=== PATIENT | female | born 1980 | race Asian ===

== ENCOUNTER 2018-02-23 23:39 | Inpatient (IN) | payer MEDICAID, OTHER ==
[~2018-02-23] VITALS: Ht 172.7 cm; Wt 47.8 kg
--- NOTE | 2018-02-23 23:59 | Emergency Room Report ---
History of Present Illness General Chief Complaint: Abdominal Pain Source: Patient, Friend, Significant Other Present Illness HPI This is a 37-year-old Polish speaking female presents with chief point abdominal pain. 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 Pain is epigastric and diffuse in nature. Nauseous but no vomiting. Pain is 10 out of 10. Never had this problem before. No fever chills. No diarrhea. No radiation. Allergies: Coded Allergies: No Known Allergies (Unverified , 02/23/18) Patient History Past Medical History: see triage record, old chart reviewed Past Surgical History: none Pertinent Family History: none Social History: Reports: smoking Last Menstrual Period: 02/17/18 Now: No Immunizations: other Reviewed Nursing Documentation: PMH: Agreed; PSxH: Agreed Nursing Documentation-PMH Past Medical History Deferred: Pt Cognitively Impaired Past Medical History: No Stated History Review of Systems Eye: Denies: eye pain, blurred vision ENT: Denies: ear pain, nose congestion, throat swelling Respiratory: Denies: cough, shortness of breath Cardiovascular: Denies: chest pain, palpitations Gastrointestinal: Reports: abdominal pain; Denies: diarrhea, nausea, vomiting Musculoskeletal: Denies: back pain, joint pain Skin: Denies: rash Neurological: Denies: headache, numbness Endocrine: Denies: increased thirst, increased urine Hematologic/Lymphatic: Denies: easy bruising All Other Systems: negative except mentioned in HPI Physical Exam Vital Signs Date Time Temp Pulse Resp B/P (MAP) Pulse Ox O2 Delivery O2 Flow Rate FiO2 02/23/18 23:36 97.8 90 20 110/70 98 Room Air 97.9 vitals normal Sp02 EP Interpretation: reviewed, normal General Appearance: well appearing, alert, thin Head: normocephalic, atraumatic Eyes: bilateral eye PERRL, bilateral eye EOMI ENT: hearing grossly normal, normal pharynx Neck: full range of motion, supple, no meningismus Respiratory: chest non-tender, lungs clear, normal breath sounds Cardiovascular #1: regular rate, rhythm, no murmur Gastrointestinal: no mass, no organomegaly, no bruit, non-distended, tenderness - diffuse, decreased bowel sounds Musculoskeletal: back normal, gait/station normal, normal range of motion, other - Patient is diffuse scarring and ulceration on her forearms from skin picking. Neurologic: alert, oriented x3 Psychiatric: mood/affect normal Skin: warm/dry Procedures Critical Care Time Critical Care Time Critical care is mandated in this patient who presented with acute abdomen from perforation. Patient require my urgent intervention to attenuate the risks of metabolic collapse which may lead to cardiovascular collapse and . Critical care time is 35 minutes excluding any reportable procedure. Critical care time included evaluation, multiple reevaluation, looking at old charts, interpreting laboratory and diagnostic data, discussing case with patient and family and consultants, and charting. Medical Decision Making Diagnostic Impression: Primary Impression: Peritonitis (acute) generalized Additional Impressions: Cholecystitis, acute Amphetamine abuse ER Course Patient presents with acute abdomen. She does have free air. Is concerning for perforation. Most likely duodenal/gastric ulcer. She also has free fluid in the pelvis. Negative . Could also be concerning for ovarian cyst rupture. Antibiotics and IV fluid given. I discussed the case with Dr. Bond, surgeon assistant director of plant operations, who will see pt. I also contacted Dr. Nieto for admission. Lab Results Impression labs unremarkable CT/MRI/US Diagnostic Results CT/MRI/US Diagnostic Results : Imaging Test Ordered: CT abdomen and pelvis Impression Read by radiologist. Multiple area of free air mostly right upper quadrant. Gallbladder wall thickening with pericholecystic fluid. Fluid in pelvis. Last Vital Signs Date Time Temp Pulse Resp B/P (MAP) Pulse Ox O2 Delivery O2 Flow Rate FiO2 02/23/18 23:36 97.8 90 20 110/70 98 Room Air 97.9 Status: improved Disposition: ADMITTED INPATIENT Condition: Serious Ulices Jraa MD Feb 23, 2018 23:59
[2018-02-24] VITALS (14 sets, daily range): BP systolic 111–146; BP diastolic 53–93
[2018-02-24] MEDS ORDERED: Morphine Sulfate 4mg/ml Inj (IV USE ONLY) IVP ONE ×3 (00:30→02:15)
[2018-02-24 00:45] LABS: APPEARANCE,URINE CLEAR; BILIRUBIN, URINE NEGATIVE (NEGATIVE); GLUCOSE, URINE (UA) NEGATIVE (NEGATIVE); KETONES,URINE 3+ (NEGATIVE); LEUKOCYTE ESTERASE ,URINE NEGATIVE (NEGATIVE); NITRITE,URINE NEGATIVE (NEGATIVE); PH,URINE 6 (4.5-8.0); PROTEIN,URINE 2+ (NEGATIVE); UROBILINOGEN,URINE NORMAL MG/DL (0.0-1.0)
[2018-02-24 00:46] LABS: ANION GAP 9 mmol/L (5-15); BLOOD UREA NITROGEN 15 mg/dL (7-18); CALCIUM 8.9 MG/DL (8.5-10.1); CARBON DIOXIDE 26 MMOL/L (21-32); CHLORIDE 102 MMOL/L (98-107); CREATININE 0.8 MG/DL (0.55-1.30); POTASSIUM 3.8 MMOL/L (3.5-5.1); SODIUM 137 MMOL/L (136-145)
[2018-02-24 00:51] LABS: BASOPHILS % (AUTO) 0.5 % (0.0-2.0); EOSINOPHILS % (AUTO) 1.4 % (0.0-3.0); HEMATOCRIT 29.7 % (37.0-47.0); HEMOGLOBIN 9.1 G/DL (12.0-16.0); LYMPHOCYTES % (AUTO) 15.9 % (20.0-45.0); MEAN CORPUSCULAR VOLUME 73 FL (80-99); MONOCYTES % (AUTO) 3.6 % (1.0-10.0); NEUTROPHILS % (AUTO) 78.7 % (45.0-75.0); PLATELET COUNT 472 K/UL (150-450); RED CELL DISTRIBUTION WIDTH 16.7 % (11.6-14.8); WHITE BLOOD COUNT 12.5 K/UL (4.8-10.8)
[2018-02-24 00:53] LABS: ALANINE AMINOTRANSFERASE 18 U/L (12-78); ALBUMIN 3.8 G/DL (3.4-5.0); ALBUMIN/GLOBULIN RATIO 1.2 (1.0-2.7); ALKALINE PHOSPHATASE 55 U/L (46-116); ASPARTATE AMINO TRANSFERASE 19 U/L (15-37); BILIRUBIN,TOTAL 0.4 MG/DL (0.2-1.0)
[2018-02-24 00:59] LABS: COLOR,URINE YELLOW
[2018-02-24] MEDS ORDERED: Isovue-300 100ml vial INJ PRN (01:00)
[2018-02-24] MEDS ORDERED: Piperacillin/Tazobactam 3.375 GM in NS 110 ML IVPB ONE (02:15)
--- NOTE | 2018-02-24 04:30 | Consultation ---
DATE OF CONSULTATION: 02/24/2018 PREOPERATIVE CONSULTATION REQUESTING PHYSICIAN: Emergency room physician. REASON FOR CONSULTATION: Abdominal pain. HISTORY OF PRESENT ILLNESS: This is a 37-year-old, oriental female, who presented to emergency room for abdominal pain since 9 o'clock February 23, 2018, which was about 4 or 5 hours ago. The pain apparently is located in the right upper quadrant and has been associated with nausea, but no vomiting. She claims that she has a history of abdominal pain for which she takes Zantac. She denies aspirin, ibuprofen, or steroids. PAST MEDICAL HISTORY: She denies allergies, asthma, diabetes, hypertension, cardiac or renal diseases. PAST SURGICAL HISTORY: Include x1. MEDICATIONS: Occasional Zantac. Social history: 37 year old Malay female single with one child. Smokes a few cigarrettes a day and drinks occasionally. She admits in using street drugs occasionally. review of systems: complains of occasional abdominal pain at night for which she takes Zantac PHYSICAL EXAMINATION: GENERAL: The patient is a 37-year-old, oriental female, lying on the gurney, complaining of abdominal pain. HEENT: Head is normocephalic and atraumatic. Eyes, pupils are equal, round, and reactive to light. Mouth is clear. NECK: There is no palpable thyromegaly or adenopathy. CHEST: Clear to auscultation and percussion. HEART: There is no gallop or murmur. S1 and S2 are within normal limits. ABDOMEN: Has broad like rigidity. The whole abdomen is completely rigid with tenderness at the upper abdomen. The bowel sounds are hypoactive. She has a scar of the transverse suprapubic incision. GENITAL: Deferred. EXTREMITIES: Within normal limits. LABORATORY DATA: CBC has shown a WBC of 12,000 with a left shift. CT scan of the abdomen has been interpreted as perforated hollow viscus. ASSESSMENT: Acute abdomen due to the perforated hollow viscus. PLAN: The patient requires an emergency exploratory laparotomy. The risk and benefits have been explained to her. She understood and granted consent. Juan R Bond M.D. DR: CATE JOB#: [id number] CC: GADIEL
[2018-02-24 04:40] LABS: INR 1.1 (0.9-1.1)
[2018-02-24] MEDS ORDERED: Bacitracin 50000 Units Vial ONE (04:51)
[2018-02-24] MEDS ORDERED: NeoSporin Gu Irrig 1ml Amp IRRIG ONE (04:51)
[2018-02-24] MEDS ORDERED: Glycopyrrolate 0.2mg/ml 1ml Vial ONE (05:00)
[2018-02-24] MEDS ORDERED: Neostigmine 1mg/ml 10ml Inj ONE (05:00)
[2018-02-24] MEDS ORDERED: Zemuron 50mg/5ml Inj IV ONE (05:04)
[2018-02-24] MEDS ORDERED: fentaNYL 100 mcg/2 mL IV ONE (05:05)
[2018-02-24] MEDS ORDERED: Midazolam 2mg/2ml Inj ONE (05:05)
--- NOTE | 2018-02-24 05:06 | Pre-Procedure Note/Attestation ---
Pre-Procedure Note/Attestation Complete Prior to Procedure Planned Procedure: not applicable Procedure Narrative: exploratory laparotomy Indications for Procedure Pre-Operative Diagnosis: acute abdomen Attestation I attest that I discussed the nature of the procedure; its benefits; risks and complications; and alternatives (and the risks and benefits of such alternatives ), prior to the procedure, with the patient (or the patient's legal direct marketing representative). I attest that, if there was a reasonable possibility of needing a blood transfusion, the patient (or the patient's legal direct marketing representative) was given the [facility] standardized written summary, pursuant to the Pawel Mason Blood Safety Act ([place] Health and Safety Code # 1645, as amended). I attest that I re-evaluated the patient just prior to the surgery and that there has been no change in the patient's H&P, except as documented below: Juan R Bond MD Feb 24, 2018 05:06
[2018-02-24] MEDS ORDERED: NS 110ml IVPB ONE (06:00)
[2018-02-24] MEDS ORDERED: LR 1000ml 1,000 ML IVLG SCH (06:10)
[2018-02-24] MEDS ORDERED: Bupivacaine w/Epi 0.25% 30ml Vial INJ ONE (06:14)
[2018-02-24] MEDS ORDERED: Bupivacaine 0.5% Inj 30 ml vial INJ ONE (06:14)
[2018-02-24] MEDS ORDERED: Meperidine 50mg/ml Inj(FOR RIGORS ONLY) IVP PRN (06:15)
[2018-02-24] MEDS ORDERED: Midazolam 2mg/2ml Inj IVP PRN (06:15)
[2018-02-24] MEDS ORDERED: DiphenhydrAMINE 50mg/ml Inj IVP PRN (06:15)
--- NOTE | 2018-02-24 06:16 | Anethesia Preoperative Eval ---
Anesthesia Pre-op PMH/ROS General Date of Evaluation: Feb 24, 2018 Time of Evaluation: 05:00 Anesthesiologist: Timbo ASA Score: ASA 2 Mallampati Score Class I : Soft palate, uvula, fauces, pillars visible Class II: Soft palate, uvula, fauces visible Class III: Soft palate, base of uvula visible Class IV: Only hard plate visible Mallampati Classification: Class II Surgeon: Varun Diagnosis: Perforated duodenal ulcer Surgical Procedure: Exploratory laparotomy Allergies: Coded Allergies: No Known Allergies (Unverified , 02/23/18) Medications: see eMAR Past Medical History Cardiovascular: Denies: HTN, CAD, ID, valve dz, arrhythmia, other Pulmonary: Denies: asthma, COPD, KELLEY, other Gastrointestinal/Genitourinary: Denies: GERD, CRI, ESRD, other Neurologic/Psychiatric: Denies: dementia, CVA, depression/anxiety, TIA, other Endocrine: Denies: DM, hypothyroidism, steroids, other HEENT: Denies: cataract (L), cataract (R), glaucoma, [place] (L), [place] (R), other Hematology/Immune: Denies: anemia, DVT, bleeding disorder, other Musculoskeletal/Integumentary: Denies: OA, RA, DJD, DDD, edema, other PMH Narrative: Substance abuse PSxH Narrative: C/S Anesthesia Pre-op Phys. Exam Physician Exam Last Vital Signs Date Time Temp Pulse Resp B/P (MAP) Pulse Ox O2 Delivery O2 Flow Rate FiO2 02/24/18 04:30 97.8 84 19 116/79 100 Room Air 97.8 Constitutional: NAD Neurologic: CN 2-12 intact Cardiovascular: RRR, no M/R/G Respiratory: CTA Gastrointestinal: S/NT/ND Airway Exam Mallampati Score: Class II MO: full ROM: full Teeth: intact, broken Anesthesia Pre-op A/P Labs Hematology Test 02/24/18 00:15 White Blood Count 12.5 K/UL (4.8-10.8) H Red Blood Count 4.10 M/UL (4.20-5.40) L Hemoglobin 9.1 G/DL (12.0-16.0) L Hematocrit 29.7 % (37.0-47.0) L Mean Corpuscular Volume 73 FL (80-99) L Mean Corpuscular Hemoglobin 22.2 PG (27.0-31.0) L Mean Corpuscular Hemoglobin Concent 30.7 G/DL (32.0-36.0) L Red Cell Distribution Width 16.7 % (11.6-14.8) H Platelet Count 472 K/UL (150-450) H Mean Platelet Volume 4.9 FL (6.5-10.1) L Neutrophils (%) (Auto) 78.7 % (45.0-75.0) H Lymphocytes (%) (Auto) 15.9 % (20.0-45.0) L Monocytes (%) (Auto) 3.6 % (1.0-10.0) Eosinophils (%) (Auto) 1.4 % (0.0-3.0) Basophils (%) (Auto) 0.5 % (0.0-2.0) Coagulation Test 02/24/18 03:50 Prothrombin Time 11.4 SEC (9.30-11.50) Prothromb Time International Ratio 1.1 (0.9-1.1) Activated Partial Thromboplast Time 23 SEC (23-33) Chemistry Test 02/24/18 00:15 Sodium Level 137 MMOL/L (136-145) Potassium Level 3.8 MMOL/L (3.5-5.1) Chloride Level 102 MMOL/L (98-107) Carbon Dioxide Level 26 MMOL/L (21-32) Anion Gap 9 mmol/L (5-15) Blood Urea Nitrogen 15 mg/dL (7-18) Creatinine 0.8 MG/DL (0.55-1.30) Estimat Glomerular Filtration Rate > 60 mL/min (>60) Glucose Level 169 MG/DL (74-106) H Calcium Level 8.9 MG/DL (8.5-10.1) Total Bilirubin 0.4 MG/DL (0.2-1.0) Aspartate Amino Transf (AST/SGOT) 19 U/L (15-37) Alanine Aminotransferase (ALT/SGPT) 18 U/L (12-78) Alkaline Phosphatase 55 U/L (46-116) Total Protein 7.1 G/DL (6.4-8.2) Albumin 3.8 G/DL (3.4-5.0) Globulin 3.3 g/dL Albumin/Globulin Ratio 1.2 (1.0-2.7) Lipase 88 U/L (73-393) Urine Test Test 02/24/18 00:31 Urine HCG, Qualitative Negative (NEGATIVE) Risk Assessment & Plan Assessment: Healthy female with h/o substance abuse Plan: GETA, SedLine, NG tube Status Change Before Surgery: No Pre-Antibiotics Drug: Patient on Pawel Viveros MD Feb 24, 2018 06:16
--- NOTE | 2018-02-24 06:17 | Immediate Post-Op Evaluation ---
Immediate Post-Op Evalulation Immediate Post-Op Evalulation Procedure: Exploratory laparotomy Date of Evaluation: Feb 24, 2018 Time of Evaluation: 07:00 IV Fluids: 1300 Estimated Blood Loss: 20 Urinary Output: 375 Blood Pressure Systolic: 125 Blood Pressure Diastolic: 91 Pulse Rate: 85 Respiratory Rate: 20 O2 Sat by Pulse Oximetry: 100 Temperature (Fahrenheit): 97.3 Pain Score (1-10): 0 Nausea: No Vomiting: No Complications No complication Patient Status: reacts, patent, extubated, none Hydration Status: adequate Drug: Patient on Pawel Viveros MD Feb 24, 2018 06:17
--- NOTE | 2018-02-24 06:29 | Brief Operative Note ---
Immediate Post Operative Note Operative Note Pre-op Diagnosis: acute abdomen Procedure: Ex Lap & repair of perforated duodenal ulcer Post-op Diagnosis: perforated duodenal ulcer Findings: consistent w/pre-op dx studies Surgeon: MD Levy Seo Marketing Specialist: none Anesthesiologist: Dr. Powell Anesthesia: general Specimen: none Complications: none Condition: stable Fluids: per anesthesiologist Estimated Blood Loss: minimal Drains: other - renee Implant(s) used?: No Juan R Bond MD Feb 24, 2018 06:29
[2018-02-24] MEDS ORDERED: Metoclopramide 10mg/2ml Inj IVP PRN (06:30)
[2018-02-24] MEDS ORDERED: Propofol 200mg/20ml IV ONE (06:47)
[2018-02-24] MEDS ORDERED: Lidocaine 1% MPF 10mg/ml 5ml ONE (06:47)
[2018-02-24] MEDS ORDERED: Sodium Chloride 10ml vial INJ ONE (06:47)
--- NOTE | 2018-02-24 07:45 | Operative Note - Dictated ---
DATE OF OPERATION: 02/24/2018 PREOPERATIVE DIAGNOSIS: Acute abdomen. POSTOPERATIVE DIAGNOSIS: Perforated duodenal ulcer with generalized peritonitis. OPERATION: Exploratory laparotomy and gastrorrhaphy. COMPLICATION: None. SURGEON: Juan R Bond M.D. CARPET TECHNICIAN: None. ANESTHESIA: General with endotracheal tube. ANESTHESIOLOGIST: Pawel Izquierdo M.D. INDICATION: This is a 37-year-old Yoruba female, who presented to emergency room complaining of abdominal pain since 9 o'clock of February 23, 2018. The pain apparently was located at epigastrium and right upper quadrant. It was associated with nausea, but no vomiting. The patient appeared that has a history of recently some kind of abdominal pain for which she has been taking Zantac. Physical examination showed board-like rigidity of the abdomen with tenderness at the upper abdomen and CBC showed WBC of 12,000 and CAT scan of the abdomen was interpreted with intraperitoneal air. DESCRIPTION OF PROCEDURE: The patient was placed supine on the operating table and after general anesthesia with endotracheal tube, the abdomen was properly prepped and draped. A midline incision was given above the umbilicus and was carried sharply through subcutaneous tissue, fascia, and peritoneum. The intraperitoneal cavity was reached and initially a rapid exploration was performed, which showed diaphragms to be normal. The part of the stomach, which could be seen was normal, but the patient had large amounts of bilious fluid under the liver over the duodenum and the duodenum was exposed, which showed perforated ulcer at the first portion of the duodenum. This perforation was about 3 to 4 mm in diameter. The liver was normal. The bowels were normal, but apparently the patient has severe constipation. The bilious fluid was aspirated and then the duodenum was delivered into the incision. The perforation was oversewn with multiple interrupted sutures of 0 silk, which was placed transversely. After the application of the sutures, a Ba patch was applied with placing the omentum over the suture line. After this, the intra-abdominal cavity was thoroughly irrigated with antibiotic solution. A Brad drain was placed under the liver and was brought out from separate stab wound on the right side. The incision was approximated with running suture of #0 Vicryl for posterior fascia and peritoneum and #1 Prolene for the fascia and the skin was approximated with multiple skin marcello. The incision was infiltrated with total of 30 mL of Marcaine 0.25%. The patient tolerated the procedure very well and was transferred to recovery room in stable condition and extubated. The sponge and needle count correct. Estimated blood loss 10 mL. Condition of the patient at the end of procedure was stable. Juan R Bond M.D. DR: ZENIA JOB#: [id number] CC: GADIEL
--- NOTE | 2018-02-24 10:19 | History & Physical ---
History and Physical History & Physicial seen and examined. Full Dictation in progress Clovis Nieto MD Feb 24, 2018 10:19
--- NOTE | 2018-02-24 10:59 | Diagnostic Imaging Report ---
Clinical Indication: Abdominal pain for one hour Technique: No oral contrast utilized, per emergency room physician request IV administration nonionic contrast. Venous phase spiral acquisition obtained through the abdomen and pelvis. Multiplanar reconstructions were generated. Total dose length product 383.85 mGycm. CTDIvol(s) 8.29 mGy. Dose reduction achieved using automated exposure control Comparison: none Findings: Lack of enteric contrast limits assessment of the GI tract. Small bubbles of free intraperitoneal gas are seen anterior to the left hepatic lobe as well as a few adjacent to the proximal duodenum. Trace ascites is seen over the dome of the liver. Slightly more abundant ascites is seen in the paracolic gutters and pelvis and a small amount within the gallbladder fossa.. No evidence of diverticulosis or diverticulitis. Metallic foreign bodies are seen within or adjacent to the colonic lumen. The appendix is not definitely visualized, but no findings to suggest acute appendicitis are evident. There is generalized mild edema of the mesenteric fat. No small bowel distention. No free or loculated intraperitoneal gas. The distal esophagus, stomach, duodenum are unremarkable. The liver demonstrates a few small subcentimeter low-attenuation lesions which are too small to characterize. The gallbladder demonstrates surrounding fluid, but no definite wall thickening or calculi. No biliary ductal dilatation. There is a small gas bubble in the region of downstream common bile duct. The pancreas, spleen, adrenals are unremarkable. The right kidney demonstrates an upper pole cyst. Left kidney demonstrates an upper pole subcentimeter lesion which is too small to characterize. No renal or ureteral calculi, hydronephrosis, hydroureter. No retroperitoneal or mesenteric mass or adenopathy. Retroverted uterus. No adnexal mass. The included lung bases are clear. The bones are unremarkable. Impression: Small bubbles of free intraperitoneal gas, as described. This is highly suggestive of perforation of a hollow viscus, site of perforation uncertain, anterior upper peritoneal location of gas bubbles raises possibility of perforated gastric or duodenal ulcer, however.. Small amount of ascites fluid. Suspect related to the above. Pericholecystic fluid, suspect related to the above, as no gallstones are evident, gallbladder wall is not thickened, and there is no gallbladder distention. However, possibly of acute cholecystitis should be considered, consider hepatobiliary nuclear scan if clinically indicated Metallic foreign bodies within or adjacent to the colonic lumen in the cecum and transverse colon. Could represent endoscopically placed clips versus ingested foreign bodies Nonspecific mild edema of the mesenteric fat Low-attenuation liver lesions, too small to characterize, most likely benign simple cysts or bile hamartomas. No further follow-up necessary. Right renal upper pole cyst. Left renal low-attenuation lesion too small to characterize, most likely benign simple cortical cysts. No further follow-up necessary. This agrees with the preliminary interpretation provided overnight by [facility] teleradiology service. The CT scanner at [facility] is accredited by the [employer] and the scans are performed using protocols designed to limit radiation exposure to as low as reasonably achievable to attain images of sufficient resolution adequate for diagnostic evaluation.
[2018-02-24] MEDS: D5 1/2NS w/KCl 20mEq 1,000 ML IV SCH ×2 (11:08→20:49)
[2018-02-24 12:59] LABS: BASOPHILS % (AUTO) 0.7 % (0.0-2.0); EOSINOPHILS % (AUTO) 1.4 % (0.0-3.0); HEMATOCRIT 30.6 % (37.0-47.0); HEMOGLOBIN 8.9 G/DL (12.0-16.0); LYMPHOCYTES % (AUTO) 15.1 % (20.0-45.0); MEAN CORPUSCULAR VOLUME 74 FL (80-99); MONOCYTES % (AUTO) 4.3 % (1.0-10.0); NEUTROPHILS % (AUTO) 78.5 % (45.0-75.0); PLATELET COUNT 450 K/UL (150-450); RED BLOOD COUNT 4.15 M/UL (4.20-5.40); RED CELL DISTRIBUTION WIDTH 17.4 % (11.6-14.8); WHITE BLOOD COUNT 12.5 K/UL (4.8-10.8)
[2018-02-24] MEDS: HYDROmorphone 1mg/ml Carpuject IVP PRN ×2 (13:31→17:40)
[2018-02-24] MEDS: ceFAZolin sod 1 GM in D5W 55 ML IV SCH ×2 (14:17→22:12)
--- NOTE | 2018-02-24 16:17 | General Surgery Progress Note ---
General Surgery-Progress Note Subjective Procedure Performed Ex Lap & repair of perforated duodenal ulcer Symptoms: improved Objective Last 24 Hour Vital Signs Date Time Temp Pulse Resp B/P (MAP) Pulse Ox O2 Delivery O2 Flow Rate FiO2 02/24/18 12:00 97.2 69 18 126/81 (96) 100 97.2 02/24/18 10:45 97.6 71 19 125/81 (96) 100 97.6 02/24/18 10:07 Nasal Cannula 3.0 02/24/18 09:45 97.6 68 19 135/79 (97) 100 97.6 02/24/18 08:15 97.2 65 19 138/89 (105) 100 97.2 02/24/18 07:15 63 20 146/92 100 Simple Mask 8 02/24/18 07:00 69 20 137/89 100 Simple Mask 8 02/24/18 06:56 207.1 85 20 100 02/24/18 06:55 73 20 125/93 100 Simple Mask 8 02/24/18 06:50 97.3 85 20 125/91 100 Simple Mask 8 97.3 02/24/18 04:30 97.8 84 19 116/79 100 Room Air 97.8 02/24/18 04:00 91 19 120/82 99 Room Air 02/24/18 03:00 97.3 91 19 114/80 97 Room Air 97.3 02/24/18 01:11 97.8 93 20 129/85 Room Air 97.8 02/24/18 00:04 97.8 02/23/18 23:36 97.8 90 20 110/70 98 Room Air 97.9 I&O Intake and Output 02/23/18 02/24/18 19:00 07:00 Intake Total 2020 ml Balance 2020 ml Intake IV Total 2000 ml Other 20 ml Dressing: dry Drains: renee Respiratory: clear Abdomen: soft, flat, tenderness, absent bowel sounds Extremities: no tenderness Laboratory Tests Test 02/24/18 00:15 02/24/18 00:31 02/24/18 03:50 White Blood Count 12.5 K/UL (4.8-10.8) H 12.5 K/UL (4.8-10.8) H Red Blood Count 4.10 M/UL (4.20-5.40) L 4.15 M/UL (4.20-5.40) L Hemoglobin 9.1 G/DL (12.0-16.0) L 8.9 G/DL (12.0-16.0) L Hematocrit 29.7 % (37.0-47.0) L 30.6 % (37.0-47.0) L Mean Corpuscular Volume 73 FL (80-99) L 74 FL (80-99) L Mean Corpuscular Hemoglobin 22.2 PG (27.0-31.0) L 21.6 PG (27.0-31.0) L Mean Corpuscular Hemoglobin Concent 30.7 G/DL (32.0-36.0) L 29.2 G/DL (32.0-36.0) L Red Cell Distribution Width 16.7 % (11.6-14.8) H 17.4 % (11.6-14.8) H Platelet Count 472 K/UL (150-450) H 450 K/UL (150-450) Mean Platelet Volume 4.9 FL (6.5-10.1) L 4.2 FL (6.5-10.1) L Neutrophils (%) (Auto) 78.7 % (45.0-75.0) H 78.5 % (45.0-75.0) H Lymphocytes (%) (Auto) 15.9 % (20.0-45.0) L 15.1 % (20.0-45.0) L Monocytes (%) (Auto) 3.6 % (1.0-10.0) 4.3 % (1.0-10.0) Eosinophils (%) (Auto) 1.4 % (0.0-3.0) 1.4 % (0.0-3.0) Basophils (%) (Auto) 0.5 % (0.0-2.0) 0.7 % (0.0-2.0) Sodium Level 137 MMOL/L (136-145) Potassium Level 3.8 MMOL/L (3.5-5.1) Chloride Level 102 MMOL/L (98-107) Carbon Dioxide Level 26 MMOL/L (21-32) Anion Gap 9 mmol/L (5-15) Blood Urea Nitrogen 15 mg/dL (7-18) Creatinine 0.8 MG/DL (0.55-1.30) Estimat Glomerular Filtration Rate > 60 mL/min (>60) Glucose Level 169 MG/DL (74-106) H Calcium Level 8.9 MG/DL (8.5-10.1) Total Bilirubin 0.4 MG/DL (0.2-1.0) Aspartate Amino Transf (AST/SGOT) 19 U/L (15-37) Alanine Aminotransferase (ALT/SGPT) 18 U/L (12-78) Alkaline Phosphatase 55 U/L (46-116) Total Protein 7.1 G/DL (6.4-8.2) Albumin 3.8 G/DL (3.4-5.0) Globulin 3.3 g/dL Albumin/Globulin Ratio 1.2 (1.0-2.7) Lipase 88 U/L (73-393) Urine Color Yellow Urine Appearance Clear Urine pH 6 (4.5-8.0) Urine Specific [place] 1.025 (1.005-1.035) Urine Protein 2+ (NEGATIVE) H Urine Glucose (UA) Negative (NEGATIVE) Urine Ketones 3+ (NEGATIVE) H Urine Blood 2+ (NEGATIVE) H Urine Nitrite Negative (NEGATIVE) Urine Bilirubin Negative (NEGATIVE) Urine Urobilinogen Normal MG/DL (0.0-1.0) Urine Leukocyte Esterase Negative (NEGATIVE) Urine RBC 0-2 /HPF (0 - 2) Urine WBC 0-2 /HPF (0 - 2) Urine Squamous Epithelial Cells Moderate /LPF (NONE/OCC) H Urine Bacteria Moderate /HPF (NONE) H Urine HCG, Qualitative Negative (NEGATIVE) Urine Opiates Screen Positive (NEGATIVE) H Urine Barbiturates Screen Negative (NEGATIVE) Phencyclidine (PCP) Screen Negative (NEGATIVE) Urine Amphetamines Screen Positive (NEGATIVE) H Urine Benzodiazepines Screen Negative (NEGATIVE) Urine Cocaine Screen Negative (NEGATIVE) Urine Marijuana (THC) Screen Negative (NEGATIVE) Prothrombin Time 11.4 SEC (9.30-11.50) Prothromb Time International Ratio 1.1 (0.9-1.1) Activated Partial Thromboplast Time 23 SEC (23-33) Assessment Post-op Diagnosis perforated duodenal ulcer Plan Additional Comments continue present treatment Juan R Bond MD Feb 24, 2018 16:17
[2018-02-24] MEDS: Pantoprazole Inj IVP SCH (20:49)
[2018-02-24] MEDS: Acetaminophen 650 MG SUPP RECTAL PRN (23:57)
[2018-02-25] VITALS: BP 128/82
[2018-02-25] MEDS: HYDROmorphone 1mg/ml Carpuject IVP PRN
[2018-02-25 04:00] VITALS: BP 113/75
[2018-02-25] MEDS: D5 1/2NS w/KCl 20mEq 1,000 ML IV SCH ×2 (06:01→16:10)
[2018-02-25 07:59] LABS: BASOPHILS % (AUTO) 0.4 % (0.0-2.0); EOSINOPHILS % (AUTO) 0.8 % (0.0-3.0); HEMATOCRIT 33.5 % (37.0-47.0); HEMOGLOBIN 9.9 G/DL (12.0-16.0); LYMPHOCYTES % (AUTO) 7.8 % (20.0-45.0); MEAN CORPUSCULAR VOLUME 74 FL (80-99); MONOCYTES % (AUTO) 7.7 % (1.0-10.0); NEUTROPHILS % (AUTO) 83.3 % (45.0-75.0); PLATELET COUNT 338 K/UL (150-450); RED BLOOD COUNT 4.56 M/UL (4.20-5.40); RED CELL DISTRIBUTION WIDTH 17.2 % (11.6-14.8); WHITE BLOOD COUNT 9.3 K/UL (4.8-10.8)
[2018-02-25 08:00] VITALS: BP 127/83
[2018-02-25] MEDS: Pantoprazole Inj IVP SCH ×2 (08:32→21:16)
[2018-02-25] MEDS: Enoxaparin 40mg Inj SUBQ SCH (08:35)
[2018-02-25 08:36] LABS: ALANINE AMINOTRANSFERASE 12 U/L (12-78); ALBUMIN 2.9 G/DL (3.4-5.0); ALBUMIN/GLOBULIN RATIO 0.8 (1.0-2.7); ALKALINE PHOSPHATASE 56 U/L (46-116); ANION GAP 9 mmol/L (5-15); ASPARTATE AMINO TRANSFERASE 15 U/L (15-37); BILIRUBIN,TOTAL 0.5 MG/DL (0.2-1.0); BLOOD UREA NITROGEN 6 mg/dL (7-18); CALCIUM 8.5 MG/DL (8.5-10.1); CARBON DIOXIDE 24 MMOL/L (21-32); CHLORIDE 102 MMOL/L (98-107); CREATININE 0.6 MG/DL (0.55-1.30); POTASSIUM 4.1 MMOL/L (3.5-5.1); SODIUM 135 MMOL/L (136-145)
[2018-02-25 12:00] VITALS: BP 126/82
--- NOTE | 2018-02-25 12:35 | General Progress Note ---
Assessment/Plan Assessment/Plan S: I am ok O: NG tube inplace, NPO, controlled pain in abdomen. PHYSICAL EXAMINATION: HEAD AND NECK: Atraumatic and normocephalic. CHEST: Clear to auscultation. No wheezing. No crackles. HEART: S1 and S2. Regular rate and rhythm. ABDOMEN: mid line Laparotomy, no local tenderness NEUROLOGIC: The patient is awake, alert, and oriented x3. MUSCULOSKELETAL: No gross focal motor deficit. Medicatino : Reviewed and reconcilled, including PRN morphin IMAGING: CT scan of the abdomen dated February 24 reviewed shows free air in the abdomen. ASSESSMENT: 1. Acute abdomen. 2. Perforation of gastric/duodenal ulcer. 3. Anemia. 4. GI and DVT prophylaxis. 5. Fever Plan: LE Dupplex Blood cultures tylenol PRN fever Subjective Allergies: Coded Allergies: No Known Allergies (Unverified , 02/23/18) Objective Last 24 Hour Vital Signs Date Time Temp Pulse Resp B/P (MAP) Pulse Ox O2 Delivery O2 Flow Rate FiO2 02/25/18 09:00 Nasal Cannula 3.0 02/25/18 08:00 98.7 79 18 127/83 (98) 100 98.7 02/25/18 04:00 98.9 76 17 113/75 (88) 100 98.9 02/25/18 00:30 98.8 02/25/18 00:30 98.8 02/25/18 00:00 100.7 74 18 128/82 (97) 100 100.7 02/24/18 23:57 100.7 02/24/18 21:00 Room Air 02/24/18 20:00 100.7 71 18 128/86 (100) 100 100.7 02/24/18 16:00 97.6 90 18 111/53 (72) 100 97.6 Intake and Output 02/24/18 02/25/18 19:00 07:00 Intake Total 2055 ml 1105 ml Output Total 1120 ml 1300 ml Balance 935 ml -195 ml Intake IV Total 2055 ml 1105 ml Output Urine Total 975 ml 1300 ml Stool Total 0 ml Gastric Drainage Total 100 ml Drainage Total 25 ml Estimated Blood Loss 20 ml Laboratory Tests 02/25/18 06:30: White Blood Count 9.3, Red Blood Count 4.56, Hemoglobin 9.9L, Hematocrit 33.5L, Mean Corpuscular Volume 74L, Mean Corpuscular Hemoglobin 21.7L, Mean Corpuscular Hemoglobin Concent 29.5L, Red Cell Distribution Width 17.2H, Platelet Count 338, Mean Platelet Volume 4.8L, Neutrophils (%) (Auto) 83.3H, Lymphocytes (%) (Auto) 7.8L, Monocytes (%) (Auto) 7.7, Eosinophils (%) (Auto) 0.8, Basophils (%) (Auto) 0.4, Sodium Level 135L, Potassium Level 4.1, Chloride Level 102, Carbon Dioxide Level 24, Anion Gap 9, Blood Urea Nitrogen 6L, Creatinine 0.6, Estimat Glomerular Filtration Rate > 60, Glucose Level 107H, Calcium Level 8.5, Total Bilirubin 0.5, Aspartate Amino Transf (AST/SGOT) 15, Alanine Aminotransferase (ALT/SGPT) 12, Alkaline Phosphatase 56, Total Protein 6.5, Albumin 2.9L, Globulin 3.6, Albumin/Globulin Ratio 0.8L Height (Feet): 5 Height (Inches): 8.00 Weight (Pounds): 104 Clovis Nieto MD Feb 25, 2018 12:35
[2018-02-25] MEDS: Acetaminophen 650 MG SUPP RECTAL PRN (12:45)
--- NOTE | 2018-02-25 12:45 | 48 Hour Post Anesthesia Eval ---
Post Anesthesia Evaluation Procedure: Exploratory laparotomy Date of Evaluation: Feb 25, 2018 Time of Evaluation: 12:43 Blood Pressure Systolic: 124 0: 78 Pulse Rate: 74 Respiratory Rate: 22 Temperature (Fahrenheit): 97.6 O2 Sat by Pulse Oximetry: 98 Airway: patent Nausea: No Vomiting: No Pain Intensity: 3 Hydration Status: adequate Cardiopulmonary Status: stable Mental Status/LOC: patient returned to baseline Follow-up Care/Observations: n/a Post-Anesthesia Complications: none Follow-up care needed: N/A Damian Reis MD Feb 25, 2018 12:44
[2018-02-25] MEDS ORDERED: Chloraseptic Spray 20mL Bottle ORAL PRN (14:00)
--- NOTE | 2018-02-25 14:48 | Infectious Diseases Prog Note ---
Assessment/Plan Problems: (1) Perforated duodenal ulcer Assessment & Plan: with peritonitis and sepsis , S/P LAP repair , will start zosyn and vancomycin empirically, pending blood culture (2) Peritonitis (acute) generalized Assessment & Plan: due to perforated duodenal ulcer will start zosyn and vancomycin empirically pending culture , general surgery is following (3) Sepsis Assessment & Plan: due to the above , will obtain CXR to rule out pneumonia , and start vancomycin with zosyn empirically (4) Amphetamine abuse Assessment & Plan: recommend counsling and rehabilitation, will screen for hepatitis Subjective Allergies: Coded Allergies: No Known Allergies (Unverified , 02/23/18) Objective Vital Signs Last 24 Hour Vital Signs Date Time Temp Pulse Resp B/P (MAP) Pulse Ox O2 Delivery O2 Flow Rate FiO2 02/25/18 13:15 101.0 02/25/18 12:45 101.8 02/25/18 12:44 207.7 74 22 98 02/25/18 12:00 101.8 80 20 126/82 (97) 100 101.8 02/25/18 09:00 Nasal Cannula 3.0 02/25/18 08:00 98.7 79 18 127/83 (98) 100 98.7 02/25/18 04:00 98.9 76 17 113/75 (88) 100 98.9 02/25/18 00:30 98.8 02/25/18 00:00 100.7 74 18 128/82 (97) 100 100.7 02/24/18 23:57 100.7 02/24/18 21:00 Room Air 02/24/18 20:00 100.7 71 18 128/86 (100) 100 100.7 02/24/18 16:00 97.6 90 18 111/53 (72) 100 97.6 Height (Feet): 5 Height (Inches): 8.00 Weight (Pounds): 104 Microbiology Date/Time Source Procedure Growth Status 02/24/18 00:31 Urine,Clean Catch Urine Culture - Preliminary Streptococcus Species Resulted Laboratory Tests Test 02/25/18 06:30 White Blood Count 9.3 K/UL (4.8-10.8) Red Blood Count 4.56 M/UL (4.20-5.40) Hemoglobin 9.9 G/DL (12.0-16.0) L Hematocrit 33.5 % (37.0-47.0) L Mean Corpuscular Volume 74 FL (80-99) L Mean Corpuscular Hemoglobin 21.7 PG (27.0-31.0) L Mean Corpuscular Hemoglobin Concent 29.5 G/DL (32.0-36.0) L Red Cell Distribution Width 17.2 % (11.6-14.8) H Platelet Count 338 K/UL (150-450) Mean Platelet Volume 4.8 FL (6.5-10.1) L Neutrophils (%) (Auto) 83.3 % (45.0-75.0) H Lymphocytes (%) (Auto) 7.8 % (20.0-45.0) L Monocytes (%) (Auto) 7.7 % (1.0-10.0) Eosinophils (%) (Auto) 0.8 % (0.0-3.0) Basophils (%) (Auto) 0.4 % (0.0-2.0) Sodium Level 135 MMOL/L (136-145) L Potassium Level 4.1 MMOL/L (3.5-5.1) Chloride Level 102 MMOL/L (98-107) Carbon Dioxide Level 24 MMOL/L (21-32) Anion Gap 9 mmol/L (5-15) Blood Urea Nitrogen 6 mg/dL (7-18) L Creatinine 0.6 MG/DL (0.55-1.30) Estimat Glomerular Filtration Rate > 60 mL/min (>60) Glucose Level 107 MG/DL (74-106) H Calcium Level 8.5 MG/DL (8.5-10.1) Total Bilirubin 0.5 MG/DL (0.2-1.0) Aspartate Amino Transf (AST/SGOT) 15 U/L (15-37) Alanine Aminotransferase (ALT/SGPT) 12 U/L (12-78) Alkaline Phosphatase 56 U/L (46-116) Total Protein 6.5 G/DL (6.4-8.2) Albumin 2.9 G/DL (3.4-5.0) L Globulin 3.6 g/dL Albumin/Globulin Ratio 0.8 (1.0-2.7) L Current Medications Medications (Trade) Dose Ordered Sig/Joey Route PRN Reason Start Time Stop Time Status Last Admin Dose Admin Acetaminophen (Tylenol) 650 mg Q4H PRN RECTAL FEVER 02/24/18 06:30 03/26/18 06:29 02/25/18 12:45 Dextrose/ Electrolytes 1,000 ml @ 100 mls/hr Q10H IV 02/24/18 10:00 03/26/18 09:59 02/25/18 06:01 Enoxaparin Sodium (Lovenox) 40 mg DAILY SUBQ 02/25/18 09:00 03/27/18 08:59 02/25/18 08:35 Hydromorphone HCl (Dilaudid) 0.5 mg Q3H PRN IVP Pain Score 1-3 02/24/18 09:14 03/03/18 09:13 Hydromorphone HCl (Dilaudid) 1 mg Q3H PRN IVP pain score 4-6 02/24/18 09:14 03/03/18 09:13 02/25/18 00:00 Hydromorphone HCl (Dilaudid) 2 mg Q3H PRN IVP pain score 7-10 02/24/18 09:14 03/03/18 09:13 Metoclopramide HCl (Reglan) 10 mg Q6H PRN IVP Nausea & Vomiting 02/24/18 06:30 03/26/18 06:29 Ondansetron HCl (Zofran) 4 mg Q6H PRN IVP Nausea & Vomiting 02/24/18 06:30 03/26/18 06:29 Pantoprazole (Protonix) 40 mg Q12HR IVP 02/24/18 21:00 03/26/18 20:59 02/25/18 08:32 Phenol/Menthol (Chloraseptic) 1 spray Q3H PRN ORAL Sore Throat 02/25/18 14:00 03/27/18 13:59 Piperacillin Sod/ Tazobactam Sod 3.375 gm/Dextrose 110 ml @ 27.5 mls/hr Q8H IVPB 02/25/18 15:00 03/04/18 14:59 Vancomycin HCl (Vanco rx to dose) 1 ea DAILY PRN MISC Per rx protocol 02/25/18 14:15 03/27/18 14:14 Vancomycin HCl/ Dextrose 250 ml @ 166.667 mls/hr Q24H IVPB 02/25/18 17:00 03/02/18 16:59 Clementine Stanton M.D. Feb 25, 2018 14:48
[2018-02-25 16:00] VITALS: BP 119/76
--- NOTE | 2018-02-25 16:01 | Diagnostic Imaging Report ---
Indication: Cough Technique: One view of the chest Comparison: none Findings: Lungs and pleural spaces are clear. Heart size is normal a nasogastric tube is in good position, coiled in the gastric fundus Impression: No acute process
--- NOTE | 2018-02-25 16:09 | Diagnostic Imaging Report ---
APPROVED REPORT CPT Code: 27469 Present Symptoms Comments: Post- operative BILATERAL: Imaging reveals a patent deep venous system bilaterally. There is no evidence of thrombus within the femoral, popliteal or tibial segments. The greater saphenous veins are also within normal limits. Doppler indicates normal spontaneous flow within these segments.
[2018-02-25] MEDS: Piperacillin/Tazobactam 3.375 GM in D5W 110 ML IVPB SCH ×2 (16:10→23:42)
--- NOTE | 2018-02-25 16:10 | General Surgery Progress Note ---
General Surgery-Progress Note Subjective Procedure Performed Ex Lap & repair of perforated duodenal ulcer Objective Last 24 Hour Vital Signs Date Time Temp Pulse Resp B/P (MAP) Pulse Ox O2 Delivery O2 Flow Rate FiO2 02/25/18 13:15 101.0 02/25/18 12:45 101.8 02/25/18 12:44 207.7 74 22 98 02/25/18 12:00 101.8 80 20 126/82 (97) 100 101.8 02/25/18 09:00 Nasal Cannula 3.0 02/25/18 08:00 98.7 79 18 127/83 (98) 100 98.7 02/25/18 04:00 98.9 76 17 113/75 (88) 100 98.9 02/25/18 00:30 98.8 02/25/18 00:00 100.7 74 18 128/82 (97) 100 100.7 02/24/18 23:57 100.7 02/24/18 21:00 Room Air 02/24/18 20:00 100.7 71 18 128/86 (100) 100 100.7 I&O Intake and Output 02/24/18 02/25/18 19:00 07:00 Intake Total 2055 ml 1105 ml Output Total 1120 ml 1300 ml Balance 935 ml -195 ml Intake IV Total 2055 ml 1105 ml Output Urine Total 975 ml 1300 ml Stool Total 0 ml Gastric Drainage Total 100 ml Drainage Total 25 ml Estimated Blood Loss 20 ml Dressing: dry Drains: renee Respiratory: clear Abdomen: soft, flat, tenderness, absent bowel sounds Extremities: no tenderness Laboratory Tests Test 02/25/18 06:30 White Blood Count 9.3 K/UL (4.8-10.8) Red Blood Count 4.56 M/UL (4.20-5.40) Hemoglobin 9.9 G/DL (12.0-16.0) L Hematocrit 33.5 % (37.0-47.0) L Mean Corpuscular Volume 74 FL (80-99) L Mean Corpuscular Hemoglobin 21.7 PG (27.0-31.0) L Mean Corpuscular Hemoglobin Concent 29.5 G/DL (32.0-36.0) L Red Cell Distribution Width 17.2 % (11.6-14.8) H Platelet Count 338 K/UL (150-450) Mean Platelet Volume 4.8 FL (6.5-10.1) L Neutrophils (%) (Auto) 83.3 % (45.0-75.0) H Lymphocytes (%) (Auto) 7.8 % (20.0-45.0) L Monocytes (%) (Auto) 7.7 % (1.0-10.0) Eosinophils (%) (Auto) 0.8 % (0.0-3.0) Basophils (%) (Auto) 0.4 % (0.0-2.0) Sodium Level 135 MMOL/L (136-145) L Potassium Level 4.1 MMOL/L (3.5-5.1) Chloride Level 102 MMOL/L (98-107) Carbon Dioxide Level 24 MMOL/L (21-32) Anion Gap 9 mmol/L (5-15) Blood Urea Nitrogen 6 mg/dL (7-18) L Creatinine 0.6 MG/DL (0.55-1.30) Estimat Glomerular Filtration Rate > 60 mL/min (>60) Glucose Level 107 MG/DL (74-106) H Calcium Level 8.5 MG/DL (8.5-10.1) Total Bilirubin 0.5 MG/DL (0.2-1.0) Aspartate Amino Transf (AST/SGOT) 15 U/L (15-37) Alanine Aminotransferase (ALT/SGPT) 12 U/L (12-78) Alkaline Phosphatase 56 U/L (46-116) Total Protein 6.5 G/DL (6.4-8.2) Albumin 2.9 G/DL (3.4-5.0) L Globulin 3.6 g/dL Albumin/Globulin Ratio 0.8 (1.0-2.7) L Assessment Post-op Diagnosis perforated duodenal ulcer Plan Additional Comments pulmonary toilet NPO Juan R Bond MD Feb 25, 2018 16:10
[2018-02-25] MEDS: Vancomycin 1250mg/D5W 250ml IVPB SCH (17:02)
[2018-02-25 20:00] VITALS: BP 97/65
[2018-02-26] VITALS: BP 119/65
--- NOTE | 2018-02-26 01:30 | Consultation ---
DATE OF CONSULTATION: 02/25/2018 INFECTIOUS DISEASE CONSULTATION CONSULTING PHYSICIAN: Clementine Stanton M.D. REQUESTING PHYSICIAN: Clovis Nieto M.D. REASON FOR CONSULTATION: Perforated duodenal ulcer complicated with acute peritonitis and sepsis. Recommendation for antibiotics treatment. HISTORY OF PRESENT ILLNESS: The patient is a 37-year-old Danish speaking female with no significant past medical history, presented to [facility] emergency room with sudden onset of generalized abdominal pain, which started an hour before presentation to the emergency room. It was mainly localized in the epigastric area, radiated to the back, 10/10 with abdominal stiffness. She was nauseous, but did not vomit, never had any previous history of abdominal pain before like this. Denied any fever or chills. No diarrhea. No other associated symptoms. The patient had a CT scan in the emergency room of the abdomen and pelvis, which showed air bubble in the epigastric area, so she was evaluated by General Surgery and she was taken to the emergency room for laparoscopic exploratory of the abdomen. The patient underwent surgical repair of perforated duodenal ulcer, which was about 3 to 4 mm as per surgical report and had surgical drainage placed and admitted to the surgical unit for further observation and monitor. The patient today spiked fever of 101 and was not responding to Tylenol, so Infectious Disease consultation was requested for antibiotics treatment and further management. As of note, the patient is drowsy and not coherent well to provide any history. History was mainly obtained from medical record and boyfriend, who is at the bedside. REVIEW OF SYSTEMS: Unable to obtain. The patient is a poor historian and could not provide good history. PAST MEDICAL HISTORY: Significant for drug abuse. MEDICATIONS: The patient was on cefazolin before her surgical procedure. For the rest of her medications, please refer to MAR. ALLERGIES: She has no known drug allergy. SOCIAL HISTORY: The patient lives with family. She uses drugs. Tested positive for cocaine. Unclear whether she used tobacco or alcohol use. FAMILY HISTORY: Unable to obtain. PHYSICAL EXAMINATION: VITAL SIGNS: Temperature 101.8, pulse 80, respirations 20, blood pressure 126/82, and saturation 100% on 3 liters nasal cannula. GENERAL: A young female, cachectic, lying in bed, lethargic, responsive to verbal commands, not in acute distress. HEENT: Normocephalic and atraumatic. Pupils reactive to light equally. Moist oral mucosa. No exudate or thrush. NECK: Supple. No lymphadenopathy. CARDIOVASCULAR: Regular rate and rhythm. No murmur or gallop. LUNGS: She had diminished breathing sounds at the bases with crackles. No wheezing or rhonchi. Normal breathing effort. ABDOMEN: Soft and tender. Surgical wound looks intact and dry. She had CELIA drainage in place with red fluid in the container. Absent bowel sounds. EXTREMITIES: No edema or cyanosis. SKIN: No rash. No hives. LABORATORY DATA: Laboratories showed white count of 9.3, hemoglobin of 9.9, and platelet count of 338,000. BUN of 6 and creatinine of 0.6. AST of 15 and ALT of 12. Urinalysis showed moderate squamous epithelial cells and moderate bacteria. Toxicology screening tested positive for amphetamine and opiates. MICROBIOLOGY: Urine culture is growing Streptococcus species more than 100,000 colony. IMAGING: CT scan of the abdomen and pelvis showed small bubbles of free intraperitoneal gas highly suggestive of perforation, also hollow vesicles site of perforation, uncertain anterior upper peritoneal location of gas bulb raised possibility of perforated gastric or duodenal ulcer. Small amount of ascites fluid related to the above pericholecystic fluid, suspect due to the above with no gallstones evident. ASSESSMENT AND RECOMMENDATION: 1. Perforated duodenal ulcer with peritonitis and sepsis, status post laparoscopic laparotomy with repair of her ulcer. We will start Zosyn and vancomycin empiric coverage for now pending blood culture. We will send peritoneal fluid drainage for cultures too. 2. Acute peritonitis, generalized due to perforated duodenal ulcer. We will start Zosyn and vancomycin empiric coverage pending culture. General surgery is following. 3. Sepsis due to the above. We will obtain chest x-ray to rule out pneumonia, source most likely her perforated duodenal ulcer and acute peritonitis . We will start wide-spectrum antibiotics pending culture. 4. Amphetamine abuse. Recommend counseling and rehabilitation. We will screen for hepatitis too. Thank you for the consult. ID will continue to follow. Please feel free to call with any question. Clementine Stanton M.D. DR: MAGGIE JOB#: [id number] CC:
[2018-02-26 04:00] VITALS: BP 108/71
[2018-02-26] MEDS: D5 1/2NS w/KCl 20mEq 1,000 ML IV SCH ×2 (05:31→11:58)
--- NOTE | 2018-02-26 06:15 | History and Physical Report ---
DATE OF ADMISSION: 02/24/2018 SOURCE OF INFORMATION: The patient and EMR. HISTORY OF PRESENT ILLNESS: The patient is a 37-year-old young [place]ian female. The patient is complaining of pain in the upper abdomen for the last couple of days and presented for worsening of pain associated with nausea and fever. Initial vital signs in the emergency room shows the patient's maximum pulse rate of 90, maximum temperature of 100.7, otherwise vital signs are stable. REVIEW OF SYSTEMS: All 14 points of review of systems reviewed. Pertinent positive and negative as above. PAST SURGICAL HISTORY: . ALLERGIES: NKDA. FAMILY HISTORY: Reviewed. Noncontributory. SOCIAL HISTORY: The patient denies history of illicit drug abuse or smoking. The patient has a child, who currently lives with the ex-. PAST MEDICAL HISTORY: Unremarkable. PHYSICAL EXAMINATION: VITAL SIGNS: Blood pressure 130/80, pulse oximetry 98% on room air, temperature 97.8. HEAD AND NECK: Atraumatic and normocephalic. CHEST: Clear to auscultation. No wheezing. No crackles. HEART: S1 and S2. Regular rate and rhythm. ABDOMEN: Positive for rebound tenderness. NEUROLOGIC: The patient is awake, alert, and oriented x3. MUSCULOSKELETAL: No gross focal motor deficit. LABORATORY DATA: Dated February 24, WBC 12.5, hemoglobin 9.1, platelet count of 472,000. Sodium 137, potassium 3.8, BUN 15, and creatinine 0.8. ALT, AST are within normal limits. UA is positive for moderate bacteriuria. IMAGING: CT scan of the abdomen dated February 24 reviewed shows free air in the abdomen. ASSESSMENT: 1. Acute abdomen. 2. Perforation of gastric/duodenal area. 3. Anemia. 4. GI and DVT prophylaxis. PLAN OF CARE: Case has already been discussed with General Surgery, Dr. Bond. Will proceed with the surgery. COMMENTS: The time of this dictation does not reflect the actual time of encounter, which occurred on February 24. Clovis Nieto M.D. DR: Lisy JOB#: [id number] CC: GADIEL
[2018-02-26] MEDS: Piperacillin/Tazobactam 3.375 GM in D5W 110 ML IVPB SCH ×3 (07:00→23:34)
[2018-02-26 07:57] VITALS: BP 115/80
[2018-02-26] MEDS: Pantoprazole Inj IVP SCH ×2 (08:38→20:37)
[2018-02-26] MEDS: Enoxaparin 40mg Inj SUBQ SCH (08:42)
--- NOTE | 2018-02-26 10:18 | Pulmonology Progress Note ---
Assessment/Plan Assessment/Plan PULMONARY CONSULTATION NOTE REASON FOR CONSULTATION: Shortness of breath following exploratory lapatotomy for perforated duodenal ulcer complicated with acute peritonitis and sepsis. HISTORY OF PRESENT ILLNESS: The patient is a 37-year-old Arabic speaking female with no significant past medical history, presented to [facility] emergency room with sudden onset of generalized abdominal pain, which started an hour before presentation to the emergency room. It was mainly localized in the epigastric area, radiated to the back, 10/10 with abdominal stiffness. She was nauseous, but did not vomit, never had any previous history of abdominal pain before like this. Denied any fever or chills. No diarrhea. No other associated symptoms. The patient had a CT scan in the emergency room of the abdomen and pelvis, which showed air bubble in the epigastric area, so she was evaluated by General Surgery and she was taken to the emergency room for laparoscopic exploratory of the abdomen. The patient underwent surgical repair of perforated duodenal ulcer, which was about 3 to 4 mm as per surgical report and had surgical drainage placed and admitted to the surgical unit for further observation and monitor. The patient today spiked fever of 101 and was not responding to Tylenol, so Infectious Disease consultation was requested for antibiotics treatment and further management. As of note, the patient is drowsy and not coherent well to provide any history. History was mainly obtained from medical record and boyfriend, who is at the bedside. REVIEW OF SYSTEMS: Unable to obtain. The patient is a poor historian and could not provide good history. PAST MEDICAL HISTORY: Significant for drug abuse. MEDICATIONS: The patient was on cefazolin before her surgical procedure. For the rest of her medications, please refer to MAR. ALLERGIES: She has no known drug allergy. SOCIAL HISTORY: The patient lives with family. She uses drugs. Tested positive for cocaine. Unclear whether she used tobacco or alcohol use. FAMILY HISTORY: Unable to obtain. PHYSICAL EXAMINATION: VITAL SIGNS: AVSS 126/82, and saturation 100% on nasal cannula. GENERAL: A young female, cachectic, lying in bed, responsive to verbal commands, not in acute distress. HEENT: Normocephalic and atraumatic. Pupils reactive to light equally. Moist oral mucosa. No exudate or thrush. NECK: Supple. No lymphadenopathy. CARDIOVASCULAR: Regular rate and rhythm. No murmur or gallop. LUNGS: She had diminished breathing sounds at the bases with crackles. No wheezing or rhonchi. Normal breathing effort. ABDOMEN: Soft and tender. Surgical wound looks intact and dry. She had CELIA drainage in place with red fluid in the container. Absent bowel sounds. EXTREMITIES: No edema or cyanosis. SKIN: No rash. No hives. LABORATORY DATA: Laboratories showed white count of 9.3, hemoglobin of 9.9, and platelet count of 338,000. BUN of 6 and creatinine of 0.6. AST of 15 and ALT of 12. Urinalysis showed moderate squamous epithelial cells and moderate bacteria. Toxicology screening tested positive for amphetamine and opiates. MICROBIOLOGY: Urine culture is growing Streptococcus species more than 100,000 colony. IMAGING: CT scan of the abdomen and pelvis showed small bubbles of free intraperitoneal gas highly suggestive of perforation, also hollow vesicles site of perforation, uncertain anterior upper peritoneal location of gas bulb raised possibility of perforated gastric or duodenal ulcer. Small amount of ascites fluid related to the above pericholecystic fluid, suspect due to the above with no gallstones evident. CXR: Nil acute noted ASSESSMENT AND RECOMMENDATION: 1. Perforated duodenal ulcer with peritonitis and sepsis, status post laparoscopic laparotomy with repair of her ulcer. We will start Zosyn and vancomycin empiric coverage for now pending blood culture. We will send peritoneal fluid drainage for cultures too. 2. Acute peritonitis, generalized due to perforated duodenal ulcer. We will start Zosyn and vancomycin empiric coverage pending culture. General surgery is following. 3. Sepsis due to the above. On antibiotics per ID, source most likely her perforated duodenal ulcer and acute peritonitis . We will start wide-spectrum antibiotics pending culture. 4. Amphetamine abuse. Recommend counseling and rehabilitation. We will screen for hepatitis too. 5. Suggest continue triflo, mobilize per surgical protocol, DVT prophyllaxis, Atrovent HHN PRN Subjective ROS Limited/Unobtainable: No Respiratory: Denies: shortness of breath Allergies: Coded Allergies: No Known Allergies (Unverified , 02/23/18) Objective Last 24 Hour Vital Signs Date Time Temp Pulse Resp B/P (MAP) Pulse Ox O2 Delivery O2 Flow Rate FiO2 02/26/18 07:57 99.2 95 18 115/80 (92) 100 99.2 02/26/18 07:51 Room Air 02/26/18 04:00 99.1 102 18 108/71 (83) 98 99.1 02/26/18 00:00 98.4 72 18 119/65 (83) 100 98.4 02/25/18 20:29 Room Air 02/25/18 20:00 99.0 80 18 97/65 (76) 100 99.0 02/25/18 17:15 98.9 98.9 02/25/18 16:00 101.7 84 19 119/76 (90) 100 101.7 02/25/18 13:15 101.0 02/25/18 12:45 101.8 02/25/18 12:44 207.7 74 22 98 02/25/18 12:00 101.8 80 20 126/82 (97) 100 101.8 Intake and Output 02/25/18 02/26/18 19:00 07:00 Intake Total 1305.000 ml 1292.5 ml Output Total 450 ml 201 ml Balance 855.000 ml 1091.5 ml Intake Oral 0 ml IV Total 1305.000 ml 1292.5 ml Output Urine Total 250 ml Gastric Drainage Total 200 ml Drainage Total 1 ml Other 200 ml # Voids 3 2 Microbiology Date/Time Source Procedure Growth Status 02/24/18 00:31 Urine,Clean Catch Urine Culture - Final Streptococcus Viridans Complete Current Medications Medications (Trade) Dose Ordered Sig/Joey Route PRN Reason Start Time Stop Time Status Last Admin Dose Admin Acetaminophen (Tylenol) 650 mg Q4H PRN RECTAL FEVER 02/24/18 06:30 03/26/18 06:29 02/25/18 12:45 Dextrose/ Electrolytes 1,000 ml @ 100 mls/hr Q10H IV 02/24/18 10:00 03/26/18 09:59 02/26/18 05:31 Enoxaparin Sodium (Lovenox) 40 mg DAILY SUBQ 02/25/18 09:00 03/27/18 08:59 02/26/18 08:42 Hydromorphone HCl (Dilaudid) 0.5 mg Q3H PRN IVP Pain Score 1-3 02/24/18 09:14 03/03/18 09:13 Hydromorphone HCl (Dilaudid) 1 mg Q3H PRN IVP pain score 4-6 02/24/18 09:14 03/03/18 09:13 02/25/18 00:00 Hydromorphone HCl (Dilaudid) 2 mg Q3H PRN IVP pain score 7-10 02/24/18 09:14 03/03/18 09:13 02/25/18 17:05 Metoclopramide HCl (Reglan) 10 mg Q6H PRN IVP Nausea & Vomiting 02/24/18 06:30 03/26/18 06:29 Ondansetron HCl (Zofran) 4 mg Q6H PRN IVP Nausea & Vomiting 02/24/18 06:30 03/26/18 06:29 Pantoprazole (Protonix) 40 mg Q12HR IVP 02/24/18 21:00 03/26/18 20:59 02/26/18 08:38 Phenol/Menthol (Chloraseptic) 1 spray Q3H PRN ORAL Sore Throat 02/25/18 14:00 03/27/18 13:59 02/25/18 17:16 Piperacillin Sod/ Tazobactam Sod 3.375 gm/Dextrose 110 ml @ 27.5 mls/hr Q8H IVPB 02/25/18 15:00 03/04/18 14:59 02/26/18 07:00 Vancomycin HCl (Vanco rx to dose) 1 ea DAILY PRN MISC Per rx protocol 02/25/18 14:15 03/27/18 14:14 Vancomycin HCl/ Dextrose 250 ml @ 166.667 mls/hr Q24H IVPB 02/25/18 17:00 03/02/18 16:59 02/25/18 17:02 Gregory Vivas MD Feb 26, 2018 10:18
--- NOTE | 2018-02-26 10:39 | General Progress Note ---
Assessment/Plan Assessment/Plan S: I am ok O: NG tube inplace, NPO, controlled pain in abdomen. PHYSICAL EXAMINATION: HEAD AND NECK: Atraumatic and normocephalic. CHEST: Clear to auscultation. No wheezing. No crackles. HEART: S1 and S2. Regular rate and rhythm. ABDOMEN: mid line Laparotomy, no local tenderness NEUROLOGIC: The patient is awake, alert, and oriented x3. MUSCULOSKELETAL: No gross focal motor deficit. Medicatino : Reviewed and reconcilled, including Vanco IMAGING: CT scan of the abdomen dated February 24 reviewed shows free air in the abdomen. ASSESSMENT: 1. Acute abdomen. 2. Perforation of gastric/duodenal ulcer. 3. Anemia. 4. GI and DVT prophylaxis. 5. Fever Plan: LE Dupplex consult ID and pulmonary Blood cultures Start empirical abx Subjective Allergies: Coded Allergies: No Known Allergies (Unverified , 02/23/18) Objective Last 24 Hour Vital Signs Date Time Temp Pulse Resp B/P (MAP) Pulse Ox O2 Delivery O2 Flow Rate FiO2 02/26/18 07:57 99.2 95 18 115/80 (92) 100 99.2 02/26/18 07:51 Room Air 02/26/18 04:00 99.1 102 18 108/71 (83) 98 99.1 02/26/18 00:00 98.4 72 18 119/65 (83) 100 98.4 02/25/18 20:29 Room Air 02/25/18 20:00 99.0 80 18 97/65 (76) 100 99.0 02/25/18 17:15 98.9 98.9 02/25/18 16:00 101.7 84 19 119/76 (90) 100 101.7 02/25/18 13:15 101.0 02/25/18 12:45 101.8 02/25/18 12:44 207.7 74 22 98 02/25/18 12:00 101.8 80 20 126/82 (97) 100 101.8 Intake and Output 02/25/18 02/26/18 19:00 07:00 Intake Total 1305.000 ml 1292.5 ml Output Total 450 ml 201 ml Balance 855.000 ml 1091.5 ml Intake Oral 0 ml IV Total 1305.000 ml 1292.5 ml Output Urine Total 250 ml Gastric Drainage Total 200 ml Drainage Total 1 ml Other 200 ml # Voids 3 2 Height (Feet): 5 Height (Inches): 8.00 Weight (Pounds): 104 Clovis Nieto MD Feb 26, 2018 10:39
[2018-02-26 10:47] LABS: BASOPHILS % (AUTO) 0.6 % (0.0-2.0); EOSINOPHILS % (AUTO) 2.9 % (0.0-3.0); HEMATOCRIT 27.3 % (37.0-47.0); LYMPHOCYTES % (AUTO) 9.7 % (20.0-45.0); MEAN CORPUSCULAR VOLUME 72 FL (80-99); MONOCYTES % (AUTO) 5.8 % (1.0-10.0); PLATELET COUNT 311 K/UL (150-450); RED BLOOD COUNT 3.79 M/UL (4.20-5.40); RED CELL DISTRIBUTION WIDTH 16.7 % (11.6-14.8)
[2018-02-26 11:08] LABS: ALANINE AMINOTRANSFERASE 14 U/L (12-78); ALBUMIN 2.4 G/DL (3.4-5.0); ALBUMIN/GLOBULIN RATIO 0.7 (1.0-2.7); ALKALINE PHOSPHATASE 51 U/L (46-116); ANION GAP 5 mmol/L (5-15); ASPARTATE AMINO TRANSFERASE 25 U/L (15-37); BILIRUBIN,TOTAL 0.4 MG/DL (0.2-1.0); BLOOD UREA NITROGEN 5 mg/dL (7-18); CALCIUM 7.7 MG/DL (8.5-10.1); CARBON DIOXIDE 26 MMOL/L (21-32); CHLORIDE 103 MMOL/L (98-107); CREATININE 0.6 MG/DL (0.55-1.30); POTASSIUM 3.6 MMOL/L (3.5-5.1); SODIUM 134 MMOL/L (136-145)
[2018-02-26 12:04] VITALS: BP 100/69
[2018-02-26] MEDS ORDERED: Ipratropium 0.02% Inh Soln 2.5ml UD HHN PRN (12:36)
--- NOTE | 2018-02-26 12:52 | General Surgery Progress Note ---
General Surgery-Progress Note Subjective Procedure Performed Ex Lap & repair of perforated duodenal ulcer Symptoms: improved Objective Last 24 Hour Vital Signs Date Time Temp Pulse Resp B/P (MAP) Pulse Ox O2 Delivery O2 Flow Rate FiO2 02/26/18 12:04 98.9 102 18 100/69 (79) 99 98.9 02/26/18 07:57 99.2 95 18 115/80 (92) 100 99.2 02/26/18 07:51 Room Air 02/26/18 04:00 99.1 102 18 108/71 (83) 98 99.1 02/26/18 00:00 98.4 72 18 119/65 (83) 100 98.4 02/25/18 20:29 Room Air 02/25/18 20:00 99.0 80 18 97/65 (76) 100 99.0 02/25/18 17:15 98.9 98.9 02/25/18 16:00 101.7 84 19 119/76 (90) 100 101.7 02/25/18 13:15 101.0 I&O Intake and Output 02/25/18 02/26/18 19:00 07:00 Intake Total 1305.000 ml 1292.5 ml Output Total 450 ml 201 ml Balance 855.000 ml 1091.5 ml Intake Oral 0 ml IV Total 1305.000 ml 1292.5 ml Output Urine Total 250 ml Gastric Drainage Total 200 ml Drainage Total 1 ml Other 200 ml # Voids 3 2 Dressing: dry Wound: clean Drains: renee Respiratory: clear Abdomen: soft, flat, tenderness, absent bowel sounds Extremities: no tenderness Laboratory Tests Test 02/26/18 10:30 White Blood Count 6.0 K/UL (4.8-10.8) Red Blood Count 3.79 M/UL (4.20-5.40) L Hemoglobin 8.0 G/DL (12.0-16.0) L Hematocrit 27.3 % (37.0-47.0) L Mean Corpuscular Volume 72 FL (80-99) L Mean Corpuscular Hemoglobin 21.3 PG (27.0-31.0) L Mean Corpuscular Hemoglobin Concent 29.5 G/DL (32.0-36.0) L Red Cell Distribution Width 16.7 % (11.6-14.8) H Platelet Count 311 K/UL (150-450) Mean Platelet Volume 4.5 FL (6.5-10.1) L Neutrophils (%) (Auto) 81.0 % (45.0-75.0) H Lymphocytes (%) (Auto) 9.7 % (20.0-45.0) L Monocytes (%) (Auto) 5.8 % (1.0-10.0) Eosinophils (%) (Auto) 2.9 % (0.0-3.0) Basophils (%) (Auto) 0.6 % (0.0-2.0) Sodium Level 134 MMOL/L (136-145) L Potassium Level 3.6 MMOL/L (3.5-5.1) Chloride Level 103 MMOL/L (98-107) Carbon Dioxide Level 26 MMOL/L (21-32) Anion Gap 5 mmol/L (5-15) Blood Urea Nitrogen 5 mg/dL (7-18) L Creatinine 0.6 MG/DL (0.55-1.30) Estimat Glomerular Filtration Rate > 60 mL/min (>60) Glucose Level 146 MG/DL (74-106) H Calcium Level 7.7 MG/DL (8.5-10.1) L Total Bilirubin 0.4 MG/DL (0.2-1.0) Aspartate Amino Transf (AST/SGOT) 25 U/L (15-37) Alanine Aminotransferase (ALT/SGPT) 14 U/L (12-78) Alkaline Phosphatase 51 U/L (46-116) Total Protein 6.0 G/DL (6.4-8.2) L Albumin 2.4 G/DL (3.4-5.0) L Globulin 3.6 g/dL Albumin/Globulin Ratio 0.7 (1.0-2.7) L Hepatitis B Surface Antigen Pending Hepatitis B Surface Antibody Pending Hepatitis C Antibody Pending Assessment Post-op Diagnosis perforated duodenal ulcer Plan Additional Comments continue as before Juan R Bodn MD Feb 26, 2018 12:52
[2018-02-26] MEDS: D5NS 1,000 ML IV SCH (13:08)
[2018-02-26 16:00] VITALS: BP 110/72
[2018-02-26] MEDS: Vancomycin 1250mg/D5W 250ml IVPB SCH (16:38)
[2018-02-26] MEDS: Acetaminophen 650 MG SUPP RECTAL PRN (16:49)
--- NOTE | 2018-02-26 17:12 | Infectious Diseases Prog Note ---
Assessment/Plan Problems: (1) Perforated duodenal ulcer Assessment & Plan: with peritonitis and sepsis , S/P LAP repair , continue zosyn and vancomycin empirically, pending blood culture (2) Peritonitis (acute) generalized Assessment & Plan: due to perforated duodenal ulcer, most likely polymicrobial , will continue zosyn and vancomycin empirically pending culture , general surgery is following (3) Sepsis Assessment & Plan: due to the above , no evidence of pneumonia , continue vancomycin with zosyn empirically (4) Amphetamine abuse Assessment & Plan: recommend counsling and rehabilitation, will screen for hepatitis Subjective Constitutional: Reports: fatigue HEENT: Reports: no symptoms Respiratory: Reports: no symptoms Breasts: Reports: no symptoms Cardiovascular: Reports: no symptoms Gastrointestinal/Abdominal: Reports: nausea, bloating, other - abdominal pain Genitourinary: Reports: no symptoms Neurologic: Reports: no symptoms Psychiatric: Reports: no symptoms Skin: Reports: no symptoms Endocrine: Reports: no symptoms Hematologic: Reports: no symptoms Musculoskeletal: Reports: no symptoms Allergies: Coded Allergies: No Known Allergies (Unverified , 02/23/18) Objective Vital Signs Last 24 Hour Vital Signs Date Time Temp Pulse Resp B/P (MAP) Pulse Ox O2 Delivery O2 Flow Rate FiO2 02/26/18 16:49 100.0 02/26/18 16:00 100.0 108 17 110/72 (85) 100 100.0 02/26/18 12:04 98.9 102 18 100/69 (79) 99 98.9 02/26/18 07:57 99.2 95 18 115/80 (92) 100 99.2 02/26/18 07:51 Room Air 02/26/18 04:00 99.1 102 18 108/71 (83) 98 99.1 02/26/18 00:00 98.4 72 18 119/65 (83) 100 98.4 02/25/18 20:29 Room Air 02/25/18 20:00 99.0 80 18 97/65 (76) 100 99.0 02/25/18 17:15 98.9 98.9 Height (Feet): 5 Height (Inches): 8.00 Weight (Pounds): 104 General Appearance: WD/WN, no acute distress, cachetic HEENT: normocephalic, atraumatic, anicteric, mucous membranes moist, PERRL Respiratory/Chest: chest wall non-tender, lungs clear, no respiratory distress , no accessory muscle use, decreased breath sounds Cardiovascular: normal peripheral pulses, normal rate, regular rhythm, no gallop/murmur, no JVD Abdomen: no organomegaly, non distended, no mass, no scars, hypoactive bowel sounds, tender, other - CELIA drain in place with red fluids , surgical wounds are dry Genitourinary: normal external genitalia Extremities: no cyanosis, no clubbing Skin: no rash, no lesions, no ulcers Neurologic/Psychiatric: alert, responsive Lymphatic: no neck adenopathy, no groin adenopathy Musculoskeletal: normal muscle bulk, no effusion Microbiology Date/Time Source Procedure Growth Status 02/24/18 00:31 Urine,Clean Catch Urine Culture - Final Streptococcus Viridans Complete Laboratory Tests Test 02/26/18 10:30 White Blood Count 6.0 K/UL (4.8-10.8) Red Blood Count 3.79 M/UL (4.20-5.40) L Hemoglobin 8.0 G/DL (12.0-16.0) L Hematocrit 27.3 % (37.0-47.0) L Mean Corpuscular Volume 72 FL (80-99) L Mean Corpuscular Hemoglobin 21.3 PG (27.0-31.0) L Mean Corpuscular Hemoglobin Concent 29.5 G/DL (32.0-36.0) L Red Cell Distribution Width 16.7 % (11.6-14.8) H Platelet Count 311 K/UL (150-450) Mean Platelet Volume 4.5 FL (6.5-10.1) L Neutrophils (%) (Auto) 81.0 % (45.0-75.0) H Lymphocytes (%) (Auto) 9.7 % (20.0-45.0) L Monocytes (%) (Auto) 5.8 % (1.0-10.0) Eosinophils (%) (Auto) 2.9 % (0.0-3.0) Basophils (%) (Auto) 0.6 % (0.0-2.0) Sodium Level 134 MMOL/L (136-145) L Potassium Level 3.6 MMOL/L (3.5-5.1) Chloride Level 103 MMOL/L (98-107) Carbon Dioxide Level 26 MMOL/L (21-32) Anion Gap 5 mmol/L (5-15) Blood Urea Nitrogen 5 mg/dL (7-18) L Creatinine 0.6 MG/DL (0.55-1.30) Estimat Glomerular Filtration Rate > 60 mL/min (>60) Glucose Level 146 MG/DL (74-106) H Calcium Level 7.7 MG/DL (8.5-10.1) L Total Bilirubin 0.4 MG/DL (0.2-1.0) Aspartate Amino Transf (AST/SGOT) 25 U/L (15-37) Alanine Aminotransferase (ALT/SGPT) 14 U/L (12-78) Alkaline Phosphatase 51 U/L (46-116) Total Protein 6.0 G/DL (6.4-8.2) L Albumin 2.4 G/DL (3.4-5.0) L Globulin 3.6 g/dL Albumin/Globulin Ratio 0.7 (1.0-2.7) L Hepatitis B Surface Antigen Pending Hepatitis B Surface Antibody Pending Hepatitis C Antibody Pending Current Medications Medications (Trade) Dose Ordered Sig/Joey Route PRN Reason Start Time Stop Time Status Last Admin Dose Admin Acetaminophen (Tylenol) 650 mg Q4H PRN RECTAL FEVER 02/24/18 06:30 03/26/18 06:29 02/26/18 16:49 Dextrose/Sodium Chloride 1,000 ml @ 70 mls/hr [id number] IV 02/26/18 13:00 03/28/18 12:59 02/26/18 13:08 Enoxaparin Sodium (Lovenox) 40 mg DAILY SUBQ 02/25/18 09:00 03/27/18 08:59 02/26/18 08:42 Hydromorphone HCl (Dilaudid) 0.5 mg Q3H PRN IVP Pain Score 1-3 02/24/18 09:14 03/03/18 09:13 Hydromorphone HCl (Dilaudid) 1 mg Q3H PRN IVP pain score 4-6 02/24/18 09:14 03/03/18 09:13 02/25/18 00:00 Hydromorphone HCl (Dilaudid) 2 mg Q3H PRN IVP pain score 7-10 10/2/18 09:14 03/03/18 09:13 02/25/18 17:05 Ipratropium Ariton (Atrovent) 500 mcg Q6H PRN HHN Shortness of Breath 02/26/18 12:36 03/03/18 12:35 Metoclopramide HCl (Reglan) 10 mg Q6H PRN IVP Nausea & Vomiting 02/24/18 06:30 03/26/18 06:29 Ondansetron HCl (Zofran) 4 mg Q6H PRN IVP Nausea & Vomiting 02/24/18 06:30 03/26/18 06:29 Pantoprazole (Protonix) 40 mg Q12HR IVP 02/24/18 21:00 03/26/18 20:59 02/26/18 08:38 Phenol/Menthol (Chloraseptic) 1 spray Q3H PRN ORAL Sore Throat 02/25/18 14:00 03/27/18 13:59 02/25/18 17:16 Piperacillin Sod/ Tazobactam Sod 3.375 gm/Dextrose 110 ml @ 27.5 mls/hr Q8H IVPB 02/25/18 15:00 03/04/18 14:59 02/26/18 14:38 Vancomycin HCl (Vanco rx to dose) 1 ea DAILY PRN MISC Per rx protocol 02/25/18 14:15 03/27/18 14:14 Vancomycin HCl/ Dextrose 250 ml @ 166.667 mls/hr Q24H IVPB 02/25/18 17:00 03/02/18 16:59 02/26/18 16:38 Clementine Stanton M.D. Feb 26, 2018 17:12
[2018-02-26 20:00] VITALS: BP 94/63
[2018-02-27] VITALS: BP 114/73
[2018-02-27 05:00] VITALS: BP 111/72
[2018-02-27] MEDS: D5NS 1,000 ML IV SCH ×2 (05:12→18:28)
[2018-02-27] MEDS: Piperacillin/Tazobactam 3.375 GM in D5W 110 ML IVPB SCH ×3 (06:59→23:52)
[2018-02-27 08:00] VITALS: BP 109/74
[2018-02-27 08:51] LABS: ALANINE AMINOTRANSFERASE 15 U/L (12-78); ALBUMIN 2.4 G/DL (3.4-5.0); ALBUMIN/GLOBULIN RATIO 0.7 (1.0-2.7); ALKALINE PHOSPHATASE 48 U/L (46-116); ANION GAP 7 mmol/L (5-15); ASPARTATE AMINO TRANSFERASE 25 U/L (15-37); BILIRUBIN,TOTAL 0.5 MG/DL (0.2-1.0); BLOOD UREA NITROGEN 9 mg/dL (7-18); CALCIUM 8.1 MG/DL (8.5-10.1); CARBON DIOXIDE 26 MMOL/L (21-32); CHLORIDE 107 MMOL/L (98-107); POTASSIUM 3.3 MMOL/L (3.5-5.1); SODIUM 140 MMOL/L (136-145)
[2018-02-27] MEDS: Pantoprazole Inj IVP SCH ×2 (09:33→20:12)
[2018-02-27] MEDS: Enoxaparin 40mg Inj SUBQ SCH (09:40)
[2018-02-27] MEDS: HYDROmorphone 1mg/ml Carpuject IVP PRN (09:45)
[2018-02-27 12:00] VITALS: BP 93/58
--- NOTE | 2018-02-27 12:16 | General Progress Note ---
Assessment/Plan Assessment/Plan S: I am ok O: NG tube inplace, NPO, controlled pain in abdomen. PHYSICAL EXAMINATION: HEAD AND NECK: Atraumatic and normocephalic. CHEST: Clear to auscultation. No wheezing. No crackles. HEART: S1 and S2. Regular rate and rhythm. ABDOMEN: mid line Laparotomy, no local tenderness NEUROLOGIC: The patient is awake, alert, and oriented x3. MUSCULOSKELETAL: No gross focal motor deficit. Medicatino : Reviewed and reconciled, including Vanco IMAGING: CT scan of the abdomen dated February 24 reviewed shows free air in the abdomen. ASSESSMENT: 1. Sepsis, secondary to peritonitis 2. Peritonitis secondary to Perforation of gastric/duodenal ulcer. 3. Anemia. 4. GI and DVT prophylaxis. 5. Fever Plan: Current Empirical antibiotic afebrile for 24 hour Advance Diet per Dr Bond Subjective Allergies: Coded Allergies: No Known Allergies (Unverified , 02/23/18) Objective Last 24 Hour Vital Signs Date Time Temp Pulse Resp B/P (MAP) Pulse Ox O2 Delivery O2 Flow Rate FiO2 02/27/18 09:00 Nasal Cannula 2.0 02/27/18 08:00 99.1 90 18 109/74 (86) 100 99.1 02/27/18 05:00 98.7 87 18 111/72 (85) 100 98.7 02/27/18 00:00 97.6 81 18 114/73 (87) 100 97.6 02/26/18 21:00 Room Air 02/26/18 20:00 98.0 87 18 94/63 (73) 100 98.0 02/26/18 19:30 105 18 Room Air 21 02/26/18 17:19 99.2 02/26/18 16:49 100.0 02/26/18 16:00 100.0 108 17 110/72 (85) 100 100.0 Intake and Output 02/26/18 02/27/18 19:00 07:00 Intake Total 1196.667 ml 950.0 ml Output Total 1070 ml 213 ml Balance 126.667 ml 737.0 ml IV Total 1196.667 ml 950.0 ml Output Urine Total 800 ml Gastric Drainage Total 200 ml Drainage Total 70 ml 13 ml Other 200 ml # Voids 1 Laboratory Tests 02/27/18 08:00: Sodium Level 140, Potassium Level 3.3L, Chloride Level 107, Carbon Dioxide Level 26, Anion Gap 7, Blood Urea Nitrogen 9, Creatinine 1.0#, Estimat Glomerular Filtration Rate > 60, Glucose Level 112H, Calcium Level 8.1L, Total Bilirubin 0.5, Aspartate Amino Transf (AST/SGOT) 25, Alanine Aminotransferase ( ALT/SGPT) 15, Alkaline Phosphatase 48, Total Protein 6.0L, Albumin 2.4L, Globulin 3.6, Albumin/Globulin Ratio 0.7L Height (Feet): 5 Height (Inches): 8.00 Weight (Pounds): 104 Clovis Nieto MD Feb 27, 2018 12:16
--- NOTE | 2018-02-27 13:13 | General Surgery Progress Note ---
General Surgery-Progress Note Subjective Procedure Performed Ex Lap & repair of perforated duodenal ulcer Symptoms: improved Objective Last 24 Hour Vital Signs Date Time Temp Pulse Resp B/P (MAP) Pulse Ox O2 Delivery O2 Flow Rate FiO2 02/27/18 12:00 98.4 83 18 93/58 (70) 99 98.4 02/27/18 09:00 Nasal Cannula 2.0 02/27/18 08:00 99.1 90 18 109/74 (86) 100 99.1 02/27/18 05:00 98.7 87 18 111/72 (85) 100 98.7 02/27/18 00:00 97.6 81 18 114/73 (87) 100 97.6 02/26/18 21:00 Room Air 02/26/18 20:00 98.0 87 18 94/63 (73) 100 98.0 02/26/18 19:30 105 18 Room Air 21 02/26/18 17:19 99.2 02/26/18 16:49 100.0 02/26/18 16:00 100.0 108 17 110/72 (85) 100 100.0 I&O Intake and Output 02/26/18 02/27/18 19:00 07:00 Intake Total 1196.667 ml 950.0 ml Output Total 1070 ml 213 ml Balance 126.667 ml 737.0 ml IV Total 1196.667 ml 950.0 ml Output Urine Total 800 ml Gastric Drainage Total 200 ml Drainage Total 70 ml 13 ml Other 200 ml # Voids 1 Wound: clean, intact Drains: renee Respiratory: clear Abdomen: soft, flat, absent bowel sounds Extremities: no tenderness Laboratory Tests Test 02/27/18 08:00 Sodium Level 140 MMOL/L (136-145) Potassium Level 3.3 MMOL/L (3.5-5.1) L Chloride Level 107 MMOL/L (98-107) Carbon Dioxide Level 26 MMOL/L (21-32) Anion Gap 7 mmol/L (5-15) Blood Urea Nitrogen 9 mg/dL (7-18) Creatinine 1.0 MG/DL (0.55-1.30) # Estimat Glomerular Filtration Rate > 60 mL/min (>60) Glucose Level 112 MG/DL (74-106) H Calcium Level 8.1 MG/DL (8.5-10.1) L Total Bilirubin 0.5 MG/DL (0.2-1.0) Aspartate Amino Transf (AST/SGOT) 25 U/L (15-37) Alanine Aminotransferase (ALT/SGPT) 15 U/L (12-78) Alkaline Phosphatase 48 U/L (46-116) Total Protein 6.0 G/DL (6.4-8.2) L Albumin 2.4 G/DL (3.4-5.0) L Globulin 3.6 g/dL Albumin/Globulin Ratio 0.7 (1.0-2.7) L Assessment Post-op Diagnosis perforated duodenal ulcer Plan Additional Comments continue as before Juan R Bond MD Feb 27, 2018 13:13
[2018-02-27] MEDS ORDERED: D5NS 1000ml IV ONE (15:33)
--- NOTE | 2018-02-27 15:54 | Infectious Diseases Prog Note ---
Assessment/Plan Problems: (1) Perforated duodenal ulcer Assessment & Plan: with peritonitis and sepsis , S/P EXP LAP with repair of the duodenal ulcer , continue zosyn and vancomycin empirically, pending blood culture (2) Peritonitis (acute) generalized Assessment & Plan: due to perforated duodenal ulcer, most likely polymicrobial , will continue zosyn and vancomycin empirically pending culture , general surgery is following (3) Sepsis Assessment & Plan: due to the above , no evidence of pneumonia , continue vancomycin with zosyn empirically (4) Amphetamine abuse Assessment & Plan: recommend counsling and rehabilitation, will screen for hepatitis (5) UTI (urinary tract infection) Assessment & Plan: due to strep viridans already on zosyn Subjective Constitutional: Reports: fatigue HEENT: Reports: no symptoms Respiratory: Reports: productive cough Breasts: Reports: no symptoms Cardiovascular: Reports: no symptoms Gastrointestinal/Abdominal: Reports: constipation, bloating, other - pain Genitourinary: Reports: no symptoms Neurologic: Reports: no symptoms Psychiatric: Reports: no symptoms Skin: Reports: no symptoms Endocrine: Reports: no symptoms Hematologic: Reports: no symptoms Musculoskeletal: Reports: no symptoms Allergies: Coded Allergies: No Known Allergies (Unverified , 02/23/18) Objective Vital Signs Last 24 Hour Vital Signs Date Time Temp Pulse Resp B/P (MAP) Pulse Ox O2 Delivery O2 Flow Rate FiO2 02/27/18 12:00 98.4 83 18 93/58 (70) 99 98.4 02/27/18 09:00 Nasal Cannula 2.0 02/27/18 08:00 99.1 90 18 109/74 (86) 100 99.1 02/27/18 05:00 98.7 87 18 111/72 (85) 100 98.7 02/27/18 00:00 97.6 81 18 114/73 (87) 100 97.6 02/26/18 21:00 Room Air 02/26/18 20:00 98.0 87 18 94/63 (73) 100 98.0 02/26/18 19:30 105 18 Room Air 21 02/26/18 17:19 99.2 02/26/18 16:49 100.0 02/26/18 16:00 100.0 108 17 110/72 (85) 100 100.0 Height (Feet): 5 Height (Inches): 8.00 Weight (Pounds): 104 General Appearance: WD/WN, no acute distress HEENT: normocephalic, atraumatic, anicteric, mucous membranes moist, PERRL, pharynx normal, supple, no JVD Respiratory/Chest: chest wall non-tender, lungs clear, normal breath sounds, no respiratory distress, no accessory muscle use Cardiovascular: normal peripheral pulses, normal rate, regular rhythm, no gallop/murmur, no JVD Abdomen: normal bowel sounds, soft, non tender, no organomegaly, non distended , no mass, no scars Extremities: no cyanosis, no clubbing Skin: no rash, no lesions, no ulcers Neurologic/Psychiatric: alert, oriented x 3, responsive Lymphatic: no neck adenopathy, no groin adenopathy Musculoskeletal: normal muscle bulk, no effusion Microbiology Date/Time Source Procedure Growth Status 02/25/18 15:15 Blood Blood Culture - Preliminary NO GROWTH AFTER 24 HOURS Resulted 02/25/18 15:00 Blood Blood Culture - Preliminary NO GROWTH AFTER 24 HOURS Resulted Laboratory Tests Test 02/27/18 08:00 Sodium Level 140 MMOL/L (136-145) Potassium Level 3.3 MMOL/L (3.5-5.1) L Chloride Level 107 MMOL/L (98-107) Carbon Dioxide Level 26 MMOL/L (21-32) Anion Gap 7 mmol/L (5-15) Blood Urea Nitrogen 9 mg/dL (7-18) Creatinine 1.0 MG/DL (0.55-1.30) # Estimat Glomerular Filtration Rate > 60 mL/min (>60) Glucose Level 112 MG/DL (74-106) H Calcium Level 8.1 MG/DL (8.5-10.1) L Total Bilirubin 0.5 MG/DL (0.2-1.0) Aspartate Amino Transf (AST/SGOT) 25 U/L (15-37) Alanine Aminotransferase (ALT/SGPT) 15 U/L (12-78) Alkaline Phosphatase 48 U/L (46-116) Total Protein 6.0 G/DL (6.4-8.2) L Albumin 2.4 G/DL (3.4-5.0) L Globulin 3.6 g/dL Albumin/Globulin Ratio 0.7 (1.0-2.7) L Current Medications Medications (Trade) Dose Ordered Sig/Joey Route PRN Reason Start Time Stop Time Status Last Admin Dose Admin Acetaminophen (Tylenol) 650 mg Q4H PRN RECTAL FEVER 02/24/18 06:30 03/26/18 06:29 02/26/18 16:49 Dextrose/Sodium Chloride 1,000 ml @ 70 mls/hr [id number] IV 02/26/18 13:00 03/28/18 12:59 02/27/18 05:12 Enoxaparin Sodium (Lovenox) 40 mg DAILY SUBQ 02/25/18 09:00 03/27/18 08:59 02/27/18 09:40 Hydromorphone HCl (Dilaudid) 0.5 mg Q3H PRN IVP Pain Score 1-3 02/24/18 09:14 03/03/18 09:13 Hydromorphone HCl (Dilaudid) 1 mg Q3H PRN IVP pain score 4-6 02/24/18 09:14 03/03/18 09:13 02/27/18 09:45 Hydromorphone HCl (Dilaudid) 2 mg Q3H PRN IVP pain score 7-10 02/24/18 09:14 03/03/18 09:13 02/25/18 17:05 Ipratropium [place] (Atrovent) 500 mcg Q6H PRN HHN Shortness of Breath 02/26/18 12:36 03/03/18 12:35 Metoclopramide HCl (Reglan) 10 mg Q6H PRN IVP Nausea & Vomiting 02/24/18 06:30 03/26/18 06:29 Ondansetron HCl (Zofran) 4 mg Q6H PRN IVP Nausea & Vomiting 02/24/18 06:30 03/26/18 06:29 Pantoprazole (Protonix) 40 mg Q12HR IVP 02/24/18 21:00 03/26/18 20:59 02/27/18 09:33 Phenol/Menthol (Chloraseptic) 1 spray Q3H PRN ORAL Sore Throat 02/25/18 14:00 03/27/18 13:59 02/25/18 17:16 Piperacillin Sod/ Tazobactam Sod 3.375 gm/Dextrose 110 ml @ 27.5 mls/hr Q8H IVPB 02/25/18 15:00 03/04/18 14:59 02/27/18 14:34 Potassium Chloride (K-Dur) 40 meq DAILY ORAL 02/27/18 12:12 03/29/18 12:11 02/27/18 13:06 Vancomycin HCl (Vanco rx to dose) 1 ea DAILY PRN MISC Per rx protocol 02/25/18 14:15 03/27/18 14:14 Clementine Stanton M.D. Feb 27, 2018 15:54
[2018-02-27 16:00] VITALS: BP 109/62
[2018-02-27] MEDS: Vancomycin 750mg/NS 250ml IVPB SCH (18:28)
[2018-02-27 20:00] VITALS: BP 104/71
--- NOTE | 2018-02-27 21:45 | Pulmonology Progress Note ---
Assessment/Plan Assessment/Plan PULMONARY CONSULTATION NOTE REASON FOR CONSULTATION: Shortness of breath following exploratory lapatotomy for perforated duodenal ulcer complicated with acute peritonitis and sepsis. HISTORY OF PRESENT ILLNESS: The patient is a 37-year-old Japanese speaking female with no significant past medical history, presented to [facility] emergency room with sudden onset of generalized abdominal pain, which started an hour before presentation to the emergency room. It was mainly localized in the epigastric area, radiated to the back, 10/10 with abdominal stiffness. She was nauseous, but did not vomit, never had any previous history of abdominal pain before like this. Denied any fever or chills. No diarrhea. No other associated symptoms. The patient had a CT scan in the emergency room of the abdomen and pelvis, which showed air bubble in the epigastric area, so she was evaluated by General Surgery and she was taken to the emergency room for laparoscopic exploratory of the abdomen. The patient underwent surgical repair of perforated duodenal ulcer, which was about 3 to 4 mm as per surgical report and had surgical drainage placed and admitted to the surgical unit for further observation and monitor. The patient today spiked fever of 101 and was not responding to Tylenol, so Infectious Disease consultation was requested for antibiotics treatment and further management. As of note, the patient is drowsy and not coherent well to provide any history. History was mainly obtained from medical record and boyfriend, who is at the bedside. REVIEW OF SYSTEMS: Unable to obtain. The patient is a poor historian and could not provide good history. PAST MEDICAL HISTORY: Significant for drug abuse. MEDICATIONS: The patient was on cefazolin before her surgical procedure. For the rest of her medications, please refer to MAR. ALLERGIES: She has no known drug allergy. SOCIAL HISTORY: The patient lives with family. She uses drugs. Tested positive for cocaine. Unclear whether she used tobacco or alcohol use. FAMILY HISTORY: Unable to obtain. PHYSICAL EXAMINATION: VITAL SIGNS: AVSS 126/82, and saturation 100% on nasal cannula. GENERAL: A young female, cachectic, lying in bed, responsive to verbal commands, not in acute distress. HEENT: Normocephalic and atraumatic. Pupils reactive to light equally. Moist oral mucosa. No exudate or thrush. NECK: Supple. No lymphadenopathy. CARDIOVASCULAR: Regular rate and rhythm. No murmur or gallop. LUNGS: She had diminished breathing sounds at the bases with crackles. No wheezing or rhonchi. Normal breathing effort. ABDOMEN: Soft and tender. Surgical wound looks intact and dry. She had CELIA drainage in place with red fluid in the container. Absent bowel sounds. EXTREMITIES: No edema or cyanosis. SKIN: No rash. No hives. LABORATORY DATA: Laboratories showed white count of 9.3, hemoglobin of 9.9, and platelet count of 338,000. BUN of 6 and creatinine of 0.6. AST of 15 and ALT of 12. Urinalysis showed moderate squamous epithelial cells and moderate bacteria. Toxicology screening tested positive for amphetamine and opiates. MICROBIOLOGY: Urine culture is growing Streptococcus species more than 100,000 colony. IMAGING: CT scan of the abdomen and pelvis showed small bubbles of free intraperitoneal gas highly suggestive of perforation, also hollow vesicles site of perforation, uncertain anterior upper peritoneal location of gas bulb raised possibility of perforated gastric or duodenal ulcer. Small amount of ascites fluid related to the above pericholecystic fluid, suspect due to the above with no gallstones evident. CXR: Nil acute noted ASSESSMENT AND RECOMMENDATION: 1. Perforated duodenal ulcer with peritonitis and sepsis, status post laparoscopic laparotomy with repair of her ulcer. We will start Zosyn and vancomycin empiric coverage for now pending blood culture. We will send peritoneal fluid drainage for cultures too. 2. Acute peritonitis, generalized due to perforated duodenal ulcer. We will start Zosyn and vancomycin empiric coverage pending culture. General surgery is following. 3. Sepsis due to the above. On antibiotics per ID, source most likely her perforated duodenal ulcer and acute peritonitis . We will start wide-spectrum antibiotics pending culture. 4. Amphetamine abuse. Recommend counseling and rehabilitation. We will screen for hepatitis too. 5. Suggest continue triflo, mobilize per surgical protocol, DVT prophyllaxis, Atrovent HHN PRN Subjective ROS Limited/Unobtainable: No Allergies: Coded Allergies: No Known Allergies (Unverified , 02/23/18) Objective Last 24 Hour Vital Signs Date Time Temp Pulse Resp B/P (MAP) Pulse Ox O2 Delivery O2 Flow Rate FiO2 02/27/18 21:00 Room Air 02/27/18 20:00 98.9 90 18 104/71 (82) 96 98.9 02/27/18 16:00 97.7 83 18 109/62 (78) 99 97.7 02/27/18 12:00 98.4 83 18 93/58 (70) 99 98.4 02/27/18 09:00 Nasal Cannula 2.0 02/27/18 08:27 98 Nasal Cannula 2.0 02/27/18 08:27 Nasal Cannula 2.0 02/27/18 08:26 87 16 Nasal Cannula 2.0 02/27/18 08:00 99.1 90 18 109/74 (86) 100 99.1 02/27/18 05:00 98.7 87 18 111/72 (85) 100 98.7 02/27/18 00:00 97.6 81 18 114/73 (87) 100 97.6 Intake and Output 02/26/18 02/27/18 19:00 07:00 Intake Total 1196.667 ml 950.0 ml Output Total 1070 ml 213 ml Balance 126.667 ml 737.0 ml IV Total 1196.667 ml 950.0 ml Output Urine Total 800 ml Gastric Drainage Total 200 ml Drainage Total 70 ml 13 ml Other 200 ml # Voids 1 Microbiology Date/Time Source Procedure Growth Status 02/25/18 15:15 Blood Blood Culture - Preliminary NO GROWTH AFTER 24 HOURS Resulted 02/25/18 15:00 Blood Blood Culture - Preliminary NO GROWTH AFTER 24 HOURS Resulted Laboratory Tests 02/27/18 08:00: Sodium Level 140, Potassium Level 3.3L, Chloride Level 107, Carbon Dioxide Level 26, Anion Gap 7, Blood Urea Nitrogen 9, Creatinine 1.0#, Estimat Glomerular Filtration Rate > 60, Glucose Level 112H, Calcium Level 8.1L, Total Bilirubin 0.5, Aspartate Amino Transf (AST/SGOT) 25, Alanine Aminotransferase ( ALT/SGPT) 15, Alkaline Phosphatase 48, Total Protein 6.0L, Albumin 2.4L, Globulin 3.6, Albumin/Globulin Ratio 0.7L 02/27/18 16:00: Vancomycin Level Trough 6.2 Current Medications Medications (Trade) Dose Ordered Sig/Joey Route PRN Reason Start Time Stop Time Status Last Admin Dose Admin Acetaminophen (Tylenol) 650 mg Q4H PRN RECTAL FEVER 02/24/18 06:30 03/26/18 06:29 02/26/18 16:49 Dextrose/Sodium Chloride 1,000 ml @ 70 mls/hr [id number] IV 02/26/18 13:00 03/28/18 12:59 02/27/18 18:28 Enoxaparin Sodium (Lovenox) 40 mg DAILY SUBQ 02/25/18 09:00 03/27/18 08:59 02/27/18 09:40 Hydromorphone HCl (Dilaudid) 0.5 mg Q3H PRN IVP Pain Score 1-3 02/24/18 09:14 03/03/18 09:13 Hydromorphone HCl (Dilaudid) 1 mg Q3H PRN IVP pain score 4-6 02/24/18 09:14 03/03/18 09:13 02/27/18 09:45 Hydromorphone HCl (Dilaudid) 2 mg Q3H PRN IVP pain score 7-10 02/24/18 09:14 03/03/18 09:13 02/25/18 17:05 Ipratropium [place] (Atrovent) 500 mcg Q6H PRN HHN Shortness of Breath 02/26/18 12:36 03/03/18 12:35 Metoclopramide HCl (Reglan) 10 mg Q6H PRN IVP Nausea & Vomiting 02/24/18 06:30 03/26/18 06:29 Ondansetron HCl (Zofran) 4 mg Q6H PRN IVP Nausea & Vomiting 02/24/18 06:30 03/26/18 06:29 Pantoprazole (Protonix) 40 mg Q12HR IVP 02/24/18 21:00 03/26/18 20:59 02/27/18 20:12 Phenol/Menthol (Chloraseptic) 1 spray Q3H PRN ORAL Sore Throat 02/25/18 14:00 03/27/18 13:59 02/25/18 17:16 Piperacillin Sod/ Tazobactam Sod 3.375 gm/Dextrose 110 ml @ 27.5 mls/hr Q8H IVPB 02/25/18 15:00 03/04/18 14:59 02/27/18 14:34 Potassium Chloride (K-Dur) 40 meq DAILY ORAL 02/27/18 12:12 03/29/18 12:11 02/27/18 13:06 Vancomycin HCl (Vanco rx to dose) 1 ea DAILY PRN MISC Per rx protocol 10/3/18 14:15 03/27/18 14:14 Vancomycin/Sodium Chloride 250 ml @ 166.667 mls/hr Q12H IVPB 02/27/18 18:00 03/04/18 17:59 02/27/18 18:28 Gregory Vivas MD Feb 27, 2018 21:45
[2018-02-28] VITALS: BP 99/67
[2018-02-28 04:00] VITALS: BP 110/68
[2018-02-28] MEDS: Vancomycin 750mg/NS 250ml IVPB SCH (05:05)
[2018-02-28] MEDS: Piperacillin/Tazobactam 3.375 GM in D5W 110 ML IVPB SCH ×3 (06:28→23:05)
[2018-02-28] MEDS: D5NS 1,000 ML IV SCH (07:54)
[2018-02-28 08:00] VITALS: BP 100/69
[2018-02-28 09:36] LABS: HEMATOCRIT 25.3 % (37.0-47.0); HEMOGLOBIN 7.7 G/DL (12.0-16.0); MEAN CORPUSCULAR VOLUME 72 FL (80-99); PLATELET COUNT 297 K/UL (150-450); RED BLOOD COUNT 3.49 M/UL (4.20-5.40); RED CELL DISTRIBUTION WIDTH 16.9 % (11.6-14.8); WHITE BLOOD COUNT 6.6 K/UL (4.8-10.8)
[2018-02-28 09:39] LABS: ANION GAP 7 mmol/L (5-15); BLOOD UREA NITROGEN 12 mg/dL (7-18); CALCIUM 8.1 MG/DL (8.5-10.1); CARBON DIOXIDE 26 MMOL/L (21-32); CHLORIDE 106 MMOL/L (98-107); CREATININE 1.3 MG/DL (0.55-1.30); POTASSIUM 3.2 MMOL/L (3.5-5.1); SODIUM 139 MMOL/L (136-145)
[2018-02-28] MEDS: Enoxaparin 40mg Inj SUBQ SCH (10:59)
[2018-02-28] MEDS: Pantoprazole Inj IVP SCH ×2 (11:00→20:17)
[2018-02-28 12:00] VITALS: BP 116/82
--- NOTE | 2018-02-28 14:24 | General Progress Note ---
Assessment/Plan Assessment/Plan S: I am ok O: NG tube out , NPO, controlled pain in abdomen. PHYSICAL EXAMINATION: HEAD AND NECK: Atraumatic and normocephalic. CHEST: Clear to auscultation. No wheezing. No crackles. HEART: S1 and S2. Regular rate and rhythm. ABDOMEN: mid line Laparotomy, no local tenderness NEUROLOGIC: The patient is awake, alert, and oriented x3. MUSCULOSKELETAL: No gross focal motor deficit. Medication : Reviewed and reconciled, including Vanco IMAGING: CT scan of the abdomen dated February 24 reviewed shows free air in the abdomen. ASSESSMENT: 1. Sepsis, secondary to peritonitis 2. Peritonitis secondary to Perforation of gastric/duodenal ulcer. 3. Anemia. 4. GI and DVT prophylaxis. 5. Fever Plan: Current Empirical antibiotic will supplement K Advance Diet per Dr Bond Subjective Allergies: Coded Allergies: No Known Allergies (Unverified , 02/23/18) Objective Last 24 Hour Vital Signs Date Time Temp Pulse Resp B/P (MAP) Pulse Ox O2 Delivery O2 Flow Rate FiO2 02/28/18 12:00 98.3 76 19 116/82 (93) 100 98.3 02/28/18 09:00 Room Air 02/28/18 08:00 Nasal Cannula 2.0 28 02/28/18 08:00 98.6 81 18 100/69 (79) 100 98.6 02/28/18 08:00 81 16 Nasal Cannula 2.0 02/28/18 08:00 98 Nasal Cannula 2.0 28 02/28/18 04:00 98.7 78 18 110/68 (82) 100 98.7 02/28/18 00:00 98.6 89 18 99/67 (78) 96 98.6 02/27/18 21:00 Room Air 02/27/18 20:00 98.9 90 18 104/71 (82) 96 98.9 02/27/18 16:00 97.7 83 18 109/62 (78) 99 97.7 Intake and Output 02/27/18 02/28/18 19:00 07:00 Intake Total 990.0 ml Output Total 101 ml 105 ml Balance 889.0 ml -105 ml IV Total 990.0 ml Gastric Drainage Total 100 ml Drainage Total 1 ml 5 ml Other 100 ml # Voids 3 3 Laboratory Tests 02/27/18 16:00: Vancomycin Level Trough 6.2 02/28/18 09:00: White Blood Count 6.6, Red Blood Count 3.49L, Hemoglobin 7.7L, Hematocrit 25.3L , Mean Corpuscular Volume 72L, Mean Corpuscular Hemoglobin 22.2L, Mean Corpuscular Hemoglobin Concent 30.6L, Red Cell Distribution Width 16.9H, Platelet Count 297, Mean Platelet Volume 4.8L, Neutrophils (%) (Auto) , Lymphocytes (%) (Auto) , Monocytes (%) (Auto) , Eosinophils (%) (Auto) , Basophils (%) (Auto) , Differential Total Cells Counted 100, Neutrophils % ( Manual) 71, Lymphocytes % (Manual) 12L, Monocytes % (Manual) 12H, Eosinophils % (Manual) 5H, Basophils % (Manual) 0, Band Neutrophils 0, Platelet Estimate Adequate, Platelet Morphology Normal, Hypochromasia 2+, Anisocytosis 2+, Microcytosis 2+, Sodium Level 139, Potassium Level 3.2L, Chloride Level 106, Carbon Dioxide Level 26, Anion Gap 7, Blood Urea Nitrogen 12, Creatinine 1.3, Estimat Glomerular Filtration Rate 45.9, Glucose Level 122H, Calcium Level 8.1L Height (Feet): 5 Height (Inches): 8.00 Weight (Pounds): 104 Clovis Nieto MD Feb 28, 2018 14:24
--- NOTE | 2018-02-28 15:04 | General Surgery Progress Note ---
General Surgery-Progress Note Subjective Procedure Performed Ex Lap & repair of perforated duodenal ulcer Symptoms: improved Objective Last 24 Hour Vital Signs Date Time Temp Pulse Resp B/P (MAP) Pulse Ox O2 Delivery O2 Flow Rate FiO2 02/28/18 12:00 98.3 76 19 116/82 (93) 100 98.3 02/28/18 09:00 Room Air 02/28/18 08:00 Nasal Cannula 2.0 28 02/28/18 08:00 98.6 81 18 100/69 (79) 100 98.6 02/28/18 08:00 81 16 Nasal Cannula 2.0 02/28/18 08:00 98 Nasal Cannula 2.0 28 02/28/18 04:00 98.7 78 18 110/68 (82) 100 98.7 02/28/18 00:00 98.6 89 18 99/67 (78) 96 98.6 02/27/18 21:00 Room Air 02/27/18 20:00 98.9 90 18 104/71 (82) 96 98.9 02/27/18 16:00 97.7 83 18 109/62 (78) 99 97.7 I&O Intake and Output 02/27/18 02/28/18 19:00 07:00 Intake Total 990.0 ml Output Total 101 ml 105 ml Balance 889.0 ml -105 ml IV Total 990.0 ml Gastric Drainage Total 100 ml Drainage Total 1 ml 5 ml Other 100 ml # Voids 3 3 Wound: clean, intact Drains: renee Respiratory: clear Abdomen: soft, flat, non-tender, absent bowel sounds Extremities: no tenderness Laboratory Tests Test 02/27/18 16:00 02/28/18 09:00 Vancomycin Level Trough 6.2 ug/mL (5.0-12.0) White Blood Count 6.6 K/UL (4.8-10.8) Red Blood Count 3.49 M/UL (4.20-5.40) L Hemoglobin 7.7 G/DL (12.0-16.0) L Hematocrit 25.3 % (37.0-47.0) L Mean Corpuscular Volume 72 FL (80-99) L Mean Corpuscular Hemoglobin 22.2 PG (27.0-31.0) L Mean Corpuscular Hemoglobin Concent 30.6 G/DL (32.0-36.0) L Red Cell Distribution Width 16.9 % (11.6-14.8) H Platelet Count 297 K/UL (150-450) Mean Platelet Volume 4.8 FL (6.5-10.1) L Neutrophils (%) (Auto) % (45.0-75.0) Lymphocytes (%) (Auto) % (20.0-45.0) Monocytes (%) (Auto) % (1.0-10.0) Eosinophils (%) (Auto) % (0.0-3.0) Basophils (%) (Auto) % (0.0-2.0) Differential Total Cells Counted 100 Neutrophils % (Manual) 71 % (45-75) Lymphocytes % (Manual) 12 % (20-45) L Monocytes % (Manual) 12 % (1-10) H Eosinophils % (Manual) 5 % (0-3) H Basophils % (Manual) 0 % (0-2) Band Neutrophils 0 % (0-8) Platelet Estimate Adequate Platelet Morphology Normal Hypochromasia 2+ Anisocytosis 2+ Microcytosis 2+ Sodium Level 139 MMOL/L (136-145) Potassium Level 3.2 MMOL/L (3.5-5.1) L Chloride Level 106 MMOL/L (98-107) Carbon Dioxide Level 26 MMOL/L (21-32) Anion Gap 7 mmol/L (5-15) Blood Urea Nitrogen 12 mg/dL (7-18) Creatinine 1.3 MG/DL (0.55-1.30) Estimat Glomerular Filtration Rate 45.9 mL/min (>60) Glucose Level 122 MG/DL (74-106) H Calcium Level 8.1 MG/DL (8.5-10.1) L Assessment Post-op Diagnosis perforated duodenal ulcer Plan Additional Comments continue DALIO Juan R Bond MD Feb 28, 2018 15:04
--- NOTE | 2018-02-28 15:57 | Pulmonology Progress Note ---
Assessment/Plan Assessment/Plan PULMONARY FOLLOW UP NOTE REASON FOR CONSULTATION: Shortness of breath following exploratory lapatotomy for perforated duodenal ulcer complicated with acute peritonitis and sepsis. HISTORY OF PRESENT ILLNESS: The patient is a 37-year-old Tajik speaking female with no significant past medical history, presented to [facility] emergency room with sudden onset of generalized abdominal pain, which started an hour before presentation to the emergency room. It was mainly localized in the epigastric area, radiated to the back, 10/10 with abdominal stiffness. She was nauseous, but did not vomit, never had any previous history of abdominal pain before like this. Denied any fever or chills. No diarrhea. No other associated symptoms. The patient had a CT scan in the emergency room of the abdomen and pelvis, which showed air bubble in the epigastric area, so she was evaluated by General Surgery and she was taken to the emergency room for laparoscopic exploratory of the abdomen. The patient underwent surgical repair of perforated duodenal ulcer, which was about 3 to 4 mm as per surgical report and had surgical drainage placed and admitted to the surgical unit for further observation and monitor. The patient today spiked fever of 101 and was not responding to Tylenol, so Infectious Disease consultation was requested for antibiotics treatment and further management. As of note, the patient is drowsy and not coherent well to provide any history. History was mainly obtained from medical record and boyfriend, who is at the bedside. REVIEW OF SYSTEMS: Unable to obtain. The patient is a poor historian and could not provide good history. PAST MEDICAL HISTORY: Significant for drug abuse. MEDICATIONS: The patient was on cefazolin before her surgical procedure. For the rest of her medications, please refer to MAR. ALLERGIES: She has no known drug allergy. SOCIAL HISTORY: The patient lives with family. She uses drugs. Tested positive for cocaine. Unclear whether she used tobacco or alcohol use. FAMILY HISTORY: Unable to obtain. PHYSICAL EXAMINATION: VITAL SIGNS: AVSS 126/82, and saturation 100% on nasal cannula. GENERAL: A young female, cachectic, lying in bed, responsive to verbal commands, not in acute distress. HEENT: Normocephalic and atraumatic. Pupils reactive to light equally. Moist oral mucosa. No exudate or thrush. NECK: Supple. No lymphadenopathy. CARDIOVASCULAR: Regular rate and rhythm. No murmur or gallop. LUNGS: She had diminished breathing sounds at the bases with crackles. No wheezing or rhonchi. Normal breathing effort. ABDOMEN: Soft and tender. Surgical wound looks intact and dry. She had CELIA drainage in place with red fluid in the container. Absent bowel sounds. EXTREMITIES: No edema or cyanosis. SKIN: No rash. No hives. LABORATORY DATA: Laboratories showed white count of 9.3, hemoglobin of 9.9, and platelet count of 338,000. BUN of 6 and creatinine of 0.6. AST of 15 and ALT of 12. Urinalysis showed moderate squamous epithelial cells and moderate bacteria. Toxicology screening tested positive for amphetamine and opiates. MICROBIOLOGY: Urine culture is growing Streptococcus species more than 100,000 colony. IMAGING: CT scan of the abdomen and pelvis showed small bubbles of free intraperitoneal gas highly suggestive of perforation, also hollow vesicles site of perforation, uncertain anterior upper peritoneal location of gas bulb raised possibility of perforated gastric or duodenal ulcer. Small amount of ascites fluid related to the above pericholecystic fluid, suspect due to the above with no gallstones evident. CXR: Nil acute noted ASSESSMENT AND RECOMMENDATION: 1. Perforated duodenal ulcer with peritonitis and sepsis, status post laparoscopic laparotomy with repair of her ulcer. We will start Zosyn and vancomycin empiric coverage for now pending blood culture. We will send peritoneal fluid drainage for cultures too. 2. Acute peritonitis, generalized due to perforated duodenal ulcer. We will start Zosyn and vancomycin empiric coverage pending culture. General surgery is following. 3. Sepsis due to the above. On antibiotics per ID, source most likely her perforated duodenal ulcer and acute peritonitis . We will start wide-spectrum antibiotics pending culture. 4. Amphetamine abuse. Recommend counseling and rehabilitation. We will screen for hepatitis too. 5. Suggest continue triflo, mobilize per surgical protocol, DVT prophyllaxis, Atrovent HHN PRN Subjective ROS Limited/Unobtainable: No Allergies: Coded Allergies: No Known Allergies (Unverified , 02/23/18) Objective Last 24 Hour Vital Signs Date Time Temp Pulse Resp B/P (MAP) Pulse Ox O2 Delivery O2 Flow Rate FiO2 02/28/18 12:00 98.3 76 19 116/82 (93) 100 98.3 02/28/18 09:00 Room Air 02/28/18 08:00 Nasal Cannula 2.0 28 02/28/18 08:00 98.6 81 18 100/69 (79) 100 98.6 02/28/18 08:00 81 16 Nasal Cannula 2.0 02/28/18 08:00 98 Nasal Cannula 2.0 28 02/28/18 04:00 98.7 78 18 110/68 (82) 100 98.7 02/28/18 00:00 98.6 89 18 99/67 (78) 96 98.6 02/27/18 21:00 Room Air 02/27/18 20:00 98.9 90 18 104/71 (82) 96 98.9 02/27/18 16:00 97.7 83 18 109/62 (78) 99 97.7 Intake and Output 02/27/18 02/28/18 19:00 07:00 Intake Total 990.0 ml Output Total 101 ml 105 ml Balance 889.0 ml -105 ml IV Total 990.0 ml Gastric Drainage Total 100 ml Drainage Total 1 ml 5 ml Other 100 ml # Voids 3 3 Laboratory Tests 02/27/18 16:00: Vancomycin Level Trough 6.2 02/28/18 09:00: White Blood Count 6.6, Red Blood Count 3.49L, Hemoglobin 7.7L, Hematocrit 25.3L , Mean Corpuscular Volume 72L, Mean Corpuscular Hemoglobin 22.2L, Mean Corpuscular Hemoglobin Concent 30.6L, Red Cell Distribution Width 16.9H, Platelet Count 297, Mean Platelet Volume 4.8L, Neutrophils (%) (Auto) , Lymphocytes (%) (Auto) , Monocytes (%) (Auto) , Eosinophils (%) (Auto) , Basophils (%) (Auto) , Differential Total Cells Counted 100, Neutrophils % ( Manual) 71, Lymphocytes % (Manual) 12L, Monocytes % (Manual) 12H, Eosinophils % (Manual) 5H, Basophils % (Manual) 0, Band Neutrophils 0, Platelet Estimate Adequate, Platelet Morphology Normal, Hypochromasia 2+, Anisocytosis 2+, Microcytosis 2+, Sodium Level 139, Potassium Level 3.2L, Chloride Level 106, Carbon Dioxide Level 26, Anion Gap 7, Blood Urea Nitrogen 12, Creatinine 1.3, Estimat Glomerular Filtration Rate 45.9, Glucose Level 122H, Calcium Level 8.1L Current Medications Medications (Trade) Dose Ordered Sig/Joey Route PRN Reason Start Time Stop Time Status Last Admin Dose Admin Acetaminophen (Tylenol) 650 mg Q4H PRN RECTAL FEVER 02/24/18 06:30 03/26/18 06:29 02/26/18 16:49 Dextrose/ Electrolytes 1,000 ml @ 100 mls/hr Q10H IV 02/28/18 16:00 03/30/18 15:59 Enoxaparin Sodium (Lovenox) 40 mg DAILY SUBQ 02/25/18 09:00 03/27/18 08:59 02/28/18 10:59 Hydromorphone HCl (Dilaudid) 0.5 mg Q3H PRN IVP Pain Score 1-3 02/24/18 09:14 03/03/18 09:13 Hydromorphone HCl (Dilaudid) 1 mg Q3H PRN IVP pain score 4-6 02/24/18 09:14 03/03/18 09:13 02/27/18 09:45 Ipratropium [place] (Atrovent) 500 mcg Q6H PRN HHN Shortness of Breath 02/26/18 12:36 03/03/18 12:35 Metoclopramide HCl (Reglan) 10 mg Q6H PRN IVP Nausea & Vomiting 02/24/18 06:30 03/26/18 06:29 Ondansetron HCl (Zofran) 4 mg Q6H PRN IVP Nausea & Vomiting 02/24/18 06:30 03/26/18 06:29 Pantoprazole (Protonix) 40 mg Q12HR IVP 02/24/18 21:00 03/26/18 20:59 02/28/18 11:00 Phenol/Menthol (Chloraseptic) 1 spray Q3H PRN ORAL Sore Throat 02/25/18 14:00 03/27/18 13:59 02/25/18 17:16 Piperacillin Sod/ Tazobactam Sod 3.375 gm/Dextrose 110 ml @ 27.5 mls/hr Q8H IVPB 02/25/18 15:00 03/04/18 14:59 02/28/18 15:13 Potassium Chloride (K-Dur) 40 meq DAILY ORAL 02/27/18 12:12 03/29/18 12:11 02/27/18 13:06 Gregory Vivas MD Feb 28, 2018 15:57
[2018-02-28] MEDS: D5 1/2NS w/KCl 40meq 1000ml 1,000 ML IV SCH (15:59)
--- NOTE | 2018-02-28 16:11 | Infectious Diseases Prog Note ---
Assessment/Plan Problems: (1) Perforated duodenal ulcer Assessment & Plan: with peritonitis and sepsis , S/P EXP LAP with repair of the duodenal ulcer , continue zosyn empirically, stop vancomycin empirically, pending blood culture (2) Peritonitis (acute) generalized Assessment & Plan: due to perforated duodenal ulcer, most likely polymicrobial , will continue zosyn empirically pending culture , general surgery is following (3) Sepsis Assessment & Plan: due to the above , no evidence of pneumonia , continue zosyn empirically for intra abdominal infection and peritonitis (4) Amphetamine abuse Assessment & Plan: recommend counsling and rehabilitation, will screen for hepatitis (5) UTI (urinary tract infection) Assessment & Plan: due to strep viridans already on zosyn Subjective Constitutional: Reports: no symptoms HEENT: Reports: no symptoms Respiratory: Reports: no symptoms Breasts: Reports: no symptoms Cardiovascular: Reports: no symptoms Gastrointestinal/Abdominal: Reports: nausea, bloating Genitourinary: Reports: no symptoms Neurologic: Reports: no symptoms Psychiatric: Reports: no symptoms Skin: Reports: no symptoms Endocrine: Reports: no symptoms Hematologic: Reports: no symptoms Musculoskeletal: Reports: no symptoms Allergies: Coded Allergies: No Known Allergies (Unverified , 02/23/18) Objective Vital Signs Last 24 Hour Vital Signs Date Time Temp Pulse Resp B/P (MAP) Pulse Ox O2 Delivery O2 Flow Rate FiO2 02/28/18 12:00 98.3 76 19 116/82 (93) 100 98.3 02/28/18 09:00 Room Air 02/28/18 08:00 Nasal Cannula 2.0 28 02/28/18 08:00 98.6 81 18 100/69 (79) 100 98.6 02/28/18 08:00 81 16 Nasal Cannula 2.0 02/28/18 08:00 98 Nasal Cannula 2.0 28 02/28/18 04:00 98.7 78 18 110/68 (82) 100 98.7 02/28/18 00:00 98.6 89 18 99/67 (78) 96 98.6 02/27/18 21:00 Room Air 02/27/18 20:00 98.9 90 18 104/71 (82) 96 98.9 Height (Feet): 5 Height (Inches): 8.00 Weight (Pounds): 104 General Appearance: WD/WN, no acute distress HEENT: normocephalic, atraumatic, anicteric, mucous membranes moist, PERRL Respiratory/Chest: chest wall non-tender, lungs clear, normal breath sounds, no respiratory distress, no accessory muscle use Cardiovascular: normal peripheral pulses, normal rate, regular rhythm, no gallop/murmur, no JVD Abdomen: no organomegaly, non distended, no mass, no scars, hypoactive bowel sounds, tender, other - RLQ CELIA tube in place Extremities: no cyanosis, no clubbing Skin: no rash, no lesions, no ulcers Neurologic/Psychiatric: alert, oriented x 3, responsive Lymphatic: no neck adenopathy, no groin adenopathy Musculoskeletal: normal muscle bulk, no effusion Laboratory Tests Test 02/28/18 09:00 White Blood Count 6.6 K/UL (4.8-10.8) Red Blood Count 3.49 M/UL (4.20-5.40) L Hemoglobin 7.7 G/DL (12.0-16.0) L Hematocrit 25.3 % (37.0-47.0) L Mean Corpuscular Volume 72 FL (80-99) L Mean Corpuscular Hemoglobin 22.2 PG (27.0-31.0) L Mean Corpuscular Hemoglobin Concent 30.6 G/DL (32.0-36.0) L Red Cell Distribution Width 16.9 % (11.6-14.8) H Platelet Count 297 K/UL (150-450) Mean Platelet Volume 4.8 FL (6.5-10.1) L Neutrophils (%) (Auto) % (45.0-75.0) Lymphocytes (%) (Auto) % (20.0-45.0) Monocytes (%) (Auto) % (1.0-10.0) Eosinophils (%) (Auto) % (0.0-3.0) Basophils (%) (Auto) % (0.0-2.0) Differential Total Cells Counted 100 Neutrophils % (Manual) 71 % (45-75) Lymphocytes % (Manual) 12 % (20-45) L Monocytes % (Manual) 12 % (1-10) H Eosinophils % (Manual) 5 % (0-3) H Basophils % (Manual) 0 % (0-2) Band Neutrophils 0 % (0-8) Platelet Estimate Adequate Platelet Morphology Normal Hypochromasia 2+ Anisocytosis 2+ Microcytosis 2+ Sodium Level 139 MMOL/L (136-145) Potassium Level 3.2 MMOL/L (3.5-5.1) L Chloride Level 106 MMOL/L (98-107) Carbon Dioxide Level 26 MMOL/L (21-32) Anion Gap 7 mmol/L (5-15) Blood Urea Nitrogen 12 mg/dL (7-18) Creatinine 1.3 MG/DL (0.55-1.30) Estimat Glomerular Filtration Rate 45.9 mL/min (>60) Glucose Level 122 MG/DL (74-106) H Calcium Level 8.1 MG/DL (8.5-10.1) L Current Medications Medications (Trade) Dose Ordered Sig/Joey Route PRN Reason Start Time Stop Time Status Last Admin Dose Admin Acetaminophen (Tylenol) 650 mg Q4H PRN RECTAL FEVER 02/24/18 06:30 03/26/18 06:29 02/26/18 16:49 Dextrose/ Electrolytes 1,000 ml @ 100 mls/hr Q10H IV 02/28/18 16:00 03/30/18 15:59 02/28/18 15:59 Enoxaparin Sodium (Lovenox) 40 mg DAILY SUBQ 02/25/18 09:00 03/27/18 08:59 02/28/18 10:59 Hydromorphone HCl (Dilaudid) 0.5 mg Q3H PRN IVP Pain Score 1-3 02/24/18 09:14 03/03/18 09:13 Hydromorphone HCl (Dilaudid) 1 mg Q3H PRN IVP pain score 4-6 02/24/18 09:14 03/03/18 09:13 02/27/18 09:45 Ipratropium [place] (Atrovent) 500 mcg Q6H PRN HHN Shortness of Breath 02/26/18 12:36 03/03/18 12:35 Metoclopramide HCl (Reglan) 10 mg Q6H PRN IVP Nausea & Vomiting 02/24/18 06:30 03/26/18 06:29 Ondansetron HCl (Zofran) 4 mg Q6H PRN IVP Nausea & Vomiting 02/24/18 06:30 03/26/18 06:29 Pantoprazole (Protonix) 40 mg Q12HR IVP 02/24/18 21:00 03/26/18 20:59 02/28/18 11:00 Phenol/Menthol (Chloraseptic) 1 spray Q3H PRN ORAL Sore Throat 02/25/18 14:00 03/27/18 13:59 02/25/18 17:16 Piperacillin Sod/ Tazobactam Sod 3.375 gm/Dextrose 110 ml @ 27.5 mls/hr Q8H IVPB 02/25/18 15:00 03/04/18 14:59 02/28/18 15:13 Potassium Chloride (K-Dur) 40 meq DAILY ORAL 02/27/18 12:12 03/29/18 12:11 02/27/18 13:06 Clementine Stanton M.D. Feb 28, 2018 16:11
[2018-02-28 16:46] VITALS: BP 112/76
[2018-02-28 20:00] VITALS: BP 107/73
[2018-03-01] VITALS: BP 103/64
[2018-03-01] MEDS: D5 1/2NS w/KCl 40meq 1000ml 1,000 ML IV SCH ×3 (02:18→23:45)
[2018-03-01 04:00] VITALS: BP 101/67
[2018-03-01] MEDS: Piperacillin/Tazobactam 3.375 GM in D5W 110 ML IVPB SCH ×2 (06:15→17:25)
[2018-03-01 07:29] LABS: HEMATOCRIT 23.5 % (37.0-47.0); HEMOGLOBIN 7.1 G/DL (12.0-16.0); MEAN CORPUSCULAR VOLUME 72 FL (80-99); PLATELET COUNT 297 K/UL (150-450); RED BLOOD COUNT 3.28 M/UL (4.20-5.40); RED CELL DISTRIBUTION WIDTH 16.7 % (11.6-14.8); WHITE BLOOD COUNT 6.4 K/UL (4.8-10.8)
--- NOTE | 2018-03-01 07:51 | General Progress Note ---
Assessment/Plan Assessment/Plan S: I am ok O: NG tube out , NPO, controlled pain in abdomen. PHYSICAL EXAMINATION: HEAD AND NECK: Atraumatic and normocephalic. CHEST: Clear to auscultation. No wheezing. No crackles. HEART: S1 and S2. Regular rate and rhythm. ABDOMEN: mid line Laparotomy, no local tenderness NEUROLOGIC: The patient is awake, alert, and oriented x3. MUSCULOSKELETAL: No gross focal motor deficit. Medication : Reviewed and reconciled, including Vanco IMAGING: CT scan of the abdomen dated February 24 reviewed shows free air in the abdomen. ASSESSMENT: 1. Sepsis, secondary to peritonitis ( chemical vs bacterial) 2. Peritonitis secondary to Perforation of gastric/duodenal ulcer. 3. Acute Anemia. 4. GI and DVT prophylaxis. 5. Fever 6. Refusal of treatment Plan: Current Empirical antibiotic will supplement K Advance Diet per Dr Bond patient refusing blood transfusion Subjective Allergies: Coded Allergies: No Known Allergies (Unverified , 02/23/18) Objective Last 24 Hour Vital Signs Date Time Temp Pulse Resp B/P (MAP) Pulse Ox O2 Delivery O2 Flow Rate FiO2 03/01/18 04:00 98.9 72 17 101/67 (78) 99 98.9 03/01/18 00:00 98.9 96 17 103/64 (77) 99 98.9 02/28/18 21:00 Room Air 02/28/18 20:00 98.9 86 20 107/73 (84) 99 98.9 02/28/18 19:21 Room Air 21 02/28/18 19:21 99 Room Air 21 02/28/18 19:20 80 16 Room Air 21 02/28/18 16:46 98.9 80 20 112/76 (88) 100 98.9 02/28/18 12:00 98.3 76 19 116/82 (93) 100 98.3 02/28/18 09:00 Room Air 02/28/18 08:00 Nasal Cannula 2.0 28 02/28/18 08:00 98.6 81 18 100/69 (79) 100 98.6 02/28/18 08:00 81 16 Nasal Cannula 2.0 02/28/18 08:00 98 Nasal Cannula 2.0 28 Intake and Output 02/28/18 03/01/18 19:00 07:00 Intake Total 660 ml Output Total 4 ml 30 ml Balance 656 ml -30 ml IV Total 660 ml Drainage Total 4 ml 30 ml # Voids 2 4 Laboratory Tests 02/28/18 09:00: White Blood Count 6.6, Red Blood Count 3.49L, Hemoglobin 7.7L, Hematocrit 25.3L , Mean Corpuscular Volume 72L, Mean Corpuscular Hemoglobin 22.2L, Mean Corpuscular Hemoglobin Concent 30.6L, Red Cell Distribution Width 16.9H, Platelet Count 297, Mean Platelet Volume 4.8L, Neutrophils (%) (Auto) , Lymphocytes (%) (Auto) , Monocytes (%) (Auto) , Eosinophils (%) (Auto) , Basophils (%) (Auto) , Differential Total Cells Counted 100, Neutrophils % ( Manual) 71, Lymphocytes % (Manual) 12L, Monocytes % (Manual) 12H, Eosinophils % (Manual) 5H, Basophils % (Manual) 0, Band Neutrophils 0, Platelet Estimate Adequate, Platelet Morphology Normal, Hypochromasia 2+, Anisocytosis 2+, Microcytosis 2+, Sodium Level 139, Potassium Level 3.2L, Chloride Level 106, Carbon Dioxide Level 26, Anion Gap 7, Blood Urea Nitrogen 12, Creatinine 1.3, Estimat Glomerular Filtration Rate 45.9, Glucose Level 122H, Calcium Level 8.1L 03/01/18 05:30: White Blood Count 6.4, Red Blood Count 3.28L, Hemoglobin 7.1L, Hematocrit 23.5L , Mean Corpuscular Volume 72L, Mean Corpuscular Hemoglobin 21.5L, Mean Corpuscular Hemoglobin Concent 30.0L, Red Cell Distribution Width 16.7H, Platelet Count 297, Mean Platelet Volume 4.8L, Neutrophils (%) (Auto) , Lymphocytes (%) (Auto) , Monocytes (%) (Auto) , Eosinophils (%) (Auto) , Basophils (%) (Auto) , Neutrophils % (Manual) [Pending], Lymphocytes % (Manual) [Pending], Platelet Estimate [Pending], Platelet Morphology [Pending], Sodium Level [Pending], Potassium Level [Pending], Chloride Level [Pending], Carbon Dioxide Level [Pending], Blood Urea Nitrogen [Pending], Creatinine [Pending], Estimat Glomerular Filtration Rate [Pending], Glucose Level [Pending], Calcium Level [Pending] Height (Feet): 5 Height (Inches): 8.00 Weight (Pounds): 104 Clovis Nieto MD Mar 01, 2018 07:51
[2018-03-01 07:56] LABS: ANION GAP 7 mmol/L (5-15); BLOOD UREA NITROGEN 8 mg/dL (7-18); CALCIUM 7.9 MG/DL (8.5-10.1); CARBON DIOXIDE 25 MMOL/L (21-32); CHLORIDE 108 MMOL/L (98-107); POTASSIUM 3.5 MMOL/L (3.5-5.1); SODIUM 140 MMOL/L (136-145)
[2018-03-01 08:00] VITALS: BP 115/71
[2018-03-01] MEDS: HYDROmorphone 1mg/ml Carpuject IVP PRN (08:22)
[2018-03-01] MEDS: Pantoprazole Inj IVP SCH ×2 (08:22→20:09)
[2018-03-01] MEDS: Enoxaparin 40mg Inj SUBQ SCH (08:28)
[2018-03-01] MEDS ORDERED: Lidocaine 1% Plain 30 ml INJ PRN (09:30)
[2018-03-01] MEDS ORDERED: Heparin 2000 units/Ns 1000ml INJ PRN (09:30)
[2018-03-01 12:00] VITALS: BP 104/73
--- NOTE | 2018-03-01 12:13 | General Surgery Progress Note ---
General Surgery-Progress Note Subjective Procedure Performed Ex Lap & repair of perforated duodenal ulcer Symptoms: passing flatus Objective Last 24 Hour Vital Signs Date Time Temp Pulse Resp B/P (MAP) Pulse Ox O2 Delivery O2 Flow Rate FiO2 03/01/18 09:00 98.9 03/01/18 08:00 98.2 79 16 115/71 (86) 100 98.2 03/01/18 07:08 78 19 Room Air 21 03/01/18 07:08 Room Air 21 03/01/18 07:08 97 Room Air 21 03/01/18 04:00 98.9 72 17 101/67 (78) 99 98.9 03/01/18 00:00 98.9 96 17 103/64 (77) 99 98.9 02/28/18 21:00 Room Air 02/28/18 20:00 98.9 86 20 107/73 (84) 99 98.9 02/28/18 19:21 Room Air 21 02/28/18 19:21 99 Room Air 21 02/28/18 19:20 80 16 Room Air 21 02/28/18 16:46 98.9 80 20 112/76 (88) 100 98.9 I&O Intake and Output 02/28/18 03/01/18 19:00 07:00 Intake Total 660 ml Output Total 4 ml 30 ml Balance 656 ml -30 ml IV Total 660 ml Drainage Total 4 ml 30 ml # Voids 2 4 Wound: clean, intact Drains: renee Respiratory: clear Abdomen: soft, flat, non-tender, present bowel sounds Extremities: no tenderness Laboratory Tests Test 03/01/18 05:30 White Blood Count 6.4 K/UL (4.8-10.8) Red Blood Count 3.28 M/UL (4.20-5.40) L Hemoglobin 7.1 G/DL (12.0-16.0) L Hematocrit 23.5 % (37.0-47.0) L Mean Corpuscular Volume 72 FL (80-99) L Mean Corpuscular Hemoglobin 21.5 PG (27.0-31.0) L Mean Corpuscular Hemoglobin Concent 30.0 G/DL (32.0-36.0) L Red Cell Distribution Width 16.7 % (11.6-14.8) H Platelet Count 297 K/UL (150-450) Mean Platelet Volume 4.8 FL (6.5-10.1) L Neutrophils (%) (Auto) % (45.0-75.0) Lymphocytes (%) (Auto) % (20.0-45.0) Monocytes (%) (Auto) % (1.0-10.0) Eosinophils (%) (Auto) % (0.0-3.0) Basophils (%) (Auto) % (0.0-2.0) Differential Total Cells Counted 100 Neutrophils % (Manual) 69 % (45-75) Lymphocytes % (Manual) 14 % (20-45) L Monocytes % (Manual) 10 % (1-10) Eosinophils % (Manual) 7 % (0-3) H Basophils % (Manual) 0 % (0-2) Band Neutrophils 0 % (0-8) Platelet Estimate Adequate Platelet Morphology Normal Hypochromasia 2+ Anisocytosis 1+ Microcytosis 1+ Sodium Level 140 MMOL/L (136-145) Potassium Level 3.5 MMOL/L (3.5-5.1) Chloride Level 108 MMOL/L (98-107) H Carbon Dioxide Level 25 MMOL/L (21-32) Anion Gap 7 mmol/L (5-15) Blood Urea Nitrogen 8 mg/dL (7-18) Creatinine 1.0 MG/DL (0.55-1.30) Estimat Glomerular Filtration Rate > 60 mL/min (>60) Glucose Level 108 MG/DL (74-106) H Calcium Level 7.9 MG/DL (8.5-10.1) L Assessment Post-op Diagnosis perforated duodenal ulcer Plan Additional Comments clear liquid Juan R Bond MD Mar 01, 2018 12:13
--- NOTE | 2018-03-01 14:44 | Pulmonology Progress Note ---
Assessment/Plan Assessment/Plan PULMONARY FOLLOW UP NOTE REASON FOR CONSULTATION: Shortness of breath following exploratory lapatotomy for perforated duodenal ulcer complicated with acute peritonitis and sepsis. Not currently short of breath, using incentive spirometer HISTORY OF PRESENT ILLNESS: The patient is a 37-year-old Spanish speaking female with no significant past medical history, presented to [facility] emergency room with sudden onset of generalized abdominal pain, which started an hour before presentation to the emergency room. It was mainly localized in the epigastric area, radiated to the back, 10/10 with abdominal stiffness. She was nauseous, but did not vomit, never had any previous history of abdominal pain before like this. Denied any fever or chills. No diarrhea. No other associated symptoms. The patient had a CT scan in the emergency room of the abdomen and pelvis, which showed air bubble in the epigastric area, so she was evaluated by General Surgery and she was taken to the emergency room for laparoscopic exploratory of the abdomen. The patient underwent surgical repair of perforated duodenal ulcer, which was about 3 to 4 mm as per surgical report and had surgical drainage placed and admitted to the surgical unit for further observation and monitor. The patient today spiked fever of 101 and was not responding to Tylenol, so Infectious Disease consultation was requested for antibiotics treatment and further management. As of note, the patient is drowsy and not coherent well to provide any history. History was mainly obtained from medical record and boyfriend, who is at the bedside. REVIEW OF SYSTEMS: Unable to obtain. The patient is a poor historian and could not provide good history. PAST MEDICAL HISTORY: Significant for drug abuse. MEDICATIONS: The patient was on cefazolin before her surgical procedure. For the rest of her medications, please refer to MAR. ALLERGIES: She has no known drug allergy. SOCIAL HISTORY: The patient lives with family. She uses drugs. Tested positive for cocaine. Unclear whether she used tobacco or alcohol use. FAMILY HISTORY: Unable to obtain. PHYSICAL EXAMINATION: VITAL SIGNS: AVSS 126/82, and saturation 100% on nasal cannula. GENERAL: A young female, cachectic, lying in bed, responsive to verbal commands, not in acute distress. HEENT: Normocephalic and atraumatic. Pupils reactive to light equally. Moist oral mucosa. No exudate or thrush. NECK: Supple. No lymphadenopathy. CARDIOVASCULAR: Regular rate and rhythm. No murmur or gallop. LUNGS: She had diminished breathing sounds at the bases with crackles. No wheezing or rhonchi. Normal breathing effort. ABDOMEN: Soft and tender. Surgical wound looks intact and dry. She had CELIA drainage in place with red fluid in the container. Absent bowel sounds. EXTREMITIES: No edema or cyanosis. SKIN: No rash. No hives. LABORATORY DATA: Laboratories showed white count of 9.3, hemoglobin of 9.9, and platelet count of 338,000. BUN of 6 and creatinine of 0.6. AST of 15 and ALT of 12. Urinalysis showed moderate squamous epithelial cells and moderate bacteria. Toxicology screening tested positive for amphetamine and opiates. MICROBIOLOGY: Urine culture is growing Streptococcus species more than 100,000 colony. IMAGING: CT scan of the abdomen and pelvis showed small bubbles of free intraperitoneal gas highly suggestive of perforation, also hollow vesicles site of perforation, uncertain anterior upper peritoneal location of gas bulb raised possibility of perforated gastric or duodenal ulcer. Small amount of ascites fluid related to the above pericholecystic fluid, suspect due to the above with no gallstones evident. CXR: Nil acute noted ASSESSMENT AND RECOMMENDATION: 1. Perforated duodenal ulcer with peritonitis and sepsis, status post laparoscopic laparotomy with repair of her ulcer. We will start Zosyn and vancomycin empiric coverage for now pending blood culture. We will send peritoneal fluid drainage for cultures too. 2. Acute peritonitis, generalized due to perforated duodenal ulcer. We will start Zosyn and vancomycin empiric coverage pending culture. General surgery is following. 3. Sepsis due to the above. On antibiotics per ID, source most likely her perforated duodenal ulcer and acute peritonitis . We will start wide-spectrum antibiotics pending culture. 4. Amphetamine abuse. Recommend counseling and rehabilitation. We will screen for hepatitis too. 5. Suggest continue triflo, mobilize per surgical protocol, DVT prophyllaxis, Atrovent HHN PRN Subjective ROS Limited/Unobtainable: No Allergies: Coded Allergies: No Known Allergies (Unverified , 02/23/18) Objective Last 24 Hour Vital Signs Date Time Temp Pulse Resp B/P (MAP) Pulse Ox O2 Delivery O2 Flow Rate FiO2 03/01/18 12:00 97.0 71 18 104/73 (83) 100 97.0 03/01/18 09:00 98.9 03/01/18 09:00 Room Air 10/7/18 08:00 98.2 79 16 115/71 (86) 100 98.2 03/01/18 07:08 78 19 Room Air 21 03/01/18 07:08 Room Air 21 03/01/18 07:08 97 Room Air 21 03/01/18 04:00 98.9 72 17 101/67 (78) 99 98.9 03/01/18 00:00 98.9 96 17 103/64 (77) 99 98.9 02/28/18 21:00 Room Air 02/28/18 20:00 98.9 86 20 107/73 (84) 99 98.9 02/28/18 19:21 Room Air 21 02/28/18 19:21 99 Room Air 21 02/28/18 19:20 80 16 Room Air 21 02/28/18 16:46 98.9 80 20 112/76 (88) 100 98.9 Intake and Output 02/28/18 03/01/18 19:00 07:00 Intake Total 660 ml Output Total 4 ml 30 ml Balance 656 ml -30 ml IV Total 660 ml Drainage Total 4 ml 30 ml # Voids 2 4 Laboratory Tests 03/01/18 05:30: White Blood Count 6.4, Red Blood Count 3.28L, Hemoglobin 7.1L, Hematocrit 23.5L , Mean Corpuscular Volume 72L, Mean Corpuscular Hemoglobin 21.5L, Mean Corpuscular Hemoglobin Concent 30.0L, Red Cell Distribution Width 16.7H, Platelet Count 297, Mean Platelet Volume 4.8L, Neutrophils (%) (Auto) , Lymphocytes (%) (Auto) , Monocytes (%) (Auto) , Eosinophils (%) (Auto) , Basophils (%) (Auto) , Differential Total Cells Counted 100, Neutrophils % ( Manual) 69, Lymphocytes % (Manual) 14L, Monocytes % (Manual) 10, Eosinophils % ( Manual) 7H, Basophils % (Manual) 0, Band Neutrophils 0, Platelet Estimate Adequate, Platelet Morphology Normal, Hypochromasia 2+, Anisocytosis 1+, Microcytosis 1+, Sodium Level 140, Potassium Level 3.5, Chloride Level 108H, Carbon Dioxide Level 25, Anion Gap 7, Blood Urea Nitrogen 8, Creatinine 1.0, Estimat Glomerular Filtration Rate > 60, Glucose Level 108H, Calcium Level 7.9L Current Medications Medications (Trade) Dose Ordered Sig/Joey Route PRN Reason Start Time Stop Time Status Last Admin Dose Admin Acetaminophen (Tylenol) 650 mg Q4H PRN RECTAL FEVER 02/24/18 06:30 03/26/18 06:29 02/26/18 16:49 Chlorhexidine Gluconate (Monica-Hex 2%) 1 applic DAILY@2000 TOPIC 03/01/18 20:00 03/31/18 19:59 Dextrose/ Electrolytes 1,000 ml @ 100 mls/hr Q10H IV 02/28/18 16:00 03/30/18 15:59 03/01/18 13:13 Enoxaparin Sodium (Lovenox) 40 mg DAILY SUBQ 02/25/18 09:00 03/27/18 08:59 03/01/18 08:28 Heparin Sodium/ Sodium Chloride (Heparin 2000 units/Ns 1000ml premix) 2,000 unit ONCE PRN INJ PICC LINE PLACEMENT 03/01/18 09:30 03/02/18 23:59 Hydromorphone HCl (Dilaudid) 0.5 mg Q3H PRN IVP Pain Score 1-3 02/24/18 09:14 03/03/18 09:13 Hydromorphone HCl (Dilaudid) 1 mg Q3H PRN IVP pain score 4-6 02/24/18 09:14 03/03/18 09:13 03/01/18 08:22 Ipratropium [place] (Atrovent) 500 mcg Q6H PRN HHN Shortness of Breath 02/26/18 12:36 03/03/18 12:35 Lidocaine HCl (Xylocaine 1% 30ml) 30 ml ONCE PRN INJ PICC LINE PLACEMENT 03/01/18 09:30 03/02/18 23:59 Metoclopramide HCl (Reglan) 10 mg Q6H PRN IVP Nausea & Vomiting 02/24/18 06:30 03/26/18 06:29 Ondansetron HCl (Zofran) 4 mg Q6H PRN IVP Nausea & Vomiting 02/24/18 06:30 03/26/18 06:29 Pantoprazole (Protonix) 40 mg Q12HR IVP 02/24/18 21:00 03/26/18 20:59 03/01/18 08:22 Phenol/Menthol (Chloraseptic) 1 spray Q3H PRN ORAL Sore Throat 02/25/18 14:00 03/27/18 13:59 02/25/18 17:16 Piperacillin Sod/ Tazobactam Sod 3.375 gm/Dextrose 110 ml @ 27.5 mls/hr Q8H IVPB 02/25/18 15:00 03/04/18 14:59 03/01/18 06:15 Potassium Chloride (K-Dur) 40 meq DAILY ORAL 02/27/18 12:12 03/29/18 12:11 02/27/18 13:06 Senna/Docusate Sodium (Alissa-Colace) 1 tab TWICE A DAY ORAL 03/01/18 18:00 03/31/18 17:59 Gregory Vivas MD Mar 01, 2018 14:44
[2018-03-01 16:00] VITALS: BP 108/67
[2018-03-01] MEDS: Docusate Sod/Senna tab ORAL SCH (18:17)
[2018-03-01 20:00] VITALS: BP 110/69
[2018-03-01] MEDS: Dyna-Hex 2% Top Sol 2oz TOPIC SCH (20:00)
[2018-03-01] MEDS: Hydromorphone 0.5mg/0.5ml inj IVP PRN (20:09)
--- NOTE | 2018-03-01 22:39 | Infectious Diseases Prog Note ---
Assessment/Plan Problems: (1) Perforated duodenal ulcer Assessment & Plan: with peritonitis and sepsis , S/P EXP LAP with repair of the duodenal ulcer , continue zosyn empirically for 7-10 days (2) Peritonitis (acute) generalized Assessment & Plan: due to perforated duodenal ulcer, most likely polymicrobial , will continue zosyn empirically for 7-10 days , general surgery is following (3) Sepsis Assessment & Plan: due to the above , no evidence of pneumonia , continue zosyn empirically for intra abdominal infection and peritonitis (4) Amphetamine abuse Assessment & Plan: recommend counsling and rehabilitation, will screen for hepatitis (5) UTI (urinary tract infection) Assessment & Plan: due to strep viridans already on zosyn Subjective Constitutional: Reports: no symptoms HEENT: Reports: no symptoms Respiratory: Reports: no symptoms Breasts: Reports: no symptoms Cardiovascular: Reports: no symptoms Gastrointestinal/Abdominal: Reports: constipation, bloating, other - passing flateus Genitourinary: Reports: no symptoms Neurologic: Reports: no symptoms Psychiatric: Reports: no symptoms Skin: Reports: no symptoms Endocrine: Reports: no symptoms Hematologic: Reports: no symptoms Musculoskeletal: Reports: no symptoms Allergies: Coded Allergies: No Known Allergies (Unverified , 02/23/18) Objective Vital Signs Last 24 Hour Vital Signs Date Time Temp Pulse Resp B/P (MAP) Pulse Ox O2 Delivery O2 Flow Rate FiO2 03/01/18 21:00 Room Air 03/01/18 20:00 98.6 80 16 110/69 (83) 100 98.6 03/01/18 19:58 Room Air 21 03/01/18 19:57 98 Room Air 21 03/01/18 19:57 76 16 Room Air 21 03/01/18 16:00 98.8 81 18 108/67 (81) 99 98.8 03/01/18 12:00 97.0 71 18 104/73 (83) 100 97.0 03/01/18 09:00 98.9 03/01/18 09:00 Room Air 03/01/18 08:00 98.2 79 16 115/71 (86) 100 98.2 03/01/18 07:08 78 19 Room Air 21 03/01/18 07:08 Room Air 21 03/01/18 07:08 97 Room Air 21 03/01/18 04:00 98.9 72 17 101/67 (78) 99 98.9 03/01/18 00:00 98.9 96 17 103/64 (77) 99 98.9 Height (Feet): 5 Height (Inches): 8.00 Weight (Pounds): 104 General Appearance: WD/WN, no acute distress, cachetic HEENT: normocephalic, atraumatic, anicteric, mucous membranes moist, PERRL Respiratory/Chest: chest wall non-tender, lungs clear, normal breath sounds, no respiratory distress, no accessory muscle use Cardiovascular: normal peripheral pulses, normal rate, regular rhythm, no gallop/murmur, no JVD Abdomen: normal bowel sounds, soft, non tender, no organomegaly, non distended , no mass, no scars Genitourinary: normal external genitalia Extremities: no cyanosis, no clubbing Skin: no rash, no lesions, no ulcers Neurologic/Psychiatric: alert, oriented x 3, responsive Lymphatic: no neck adenopathy, no groin adenopathy Musculoskeletal: normal muscle bulk, no effusion Laboratory Tests Test 03/01/18 05:30 White Blood Count 6.4 K/UL (4.8-10.8) Red Blood Count 3.28 M/UL (4.20-5.40) L Hemoglobin 7.1 G/DL (12.0-16.0) L Hematocrit 23.5 % (37.0-47.0) L Mean Corpuscular Volume 72 FL (80-99) L Mean Corpuscular Hemoglobin 21.5 PG (27.0-31.0) L Mean Corpuscular Hemoglobin Concent 30.0 G/DL (32.0-36.0) L Red Cell Distribution Width 16.7 % (11.6-14.8) H Platelet Count 297 K/UL (150-450) Mean Platelet Volume 4.8 FL (6.5-10.1) L Neutrophils (%) (Auto) % (45.0-75.0) Lymphocytes (%) (Auto) % (20.0-45.0) Monocytes (%) (Auto) % (1.0-10.0) Eosinophils (%) (Auto) % (0.0-3.0) Basophils (%) (Auto) % (0.0-2.0) Differential Total Cells Counted 100 Neutrophils % (Manual) 69 % (45-75) Lymphocytes % (Manual) 14 % (20-45) L Monocytes % (Manual) 10 % (1-10) Eosinophils % (Manual) 7 % (0-3) H Basophils % (Manual) 0 % (0-2) Band Neutrophils 0 % (0-8) Platelet Estimate Adequate Platelet Morphology Normal Hypochromasia 2+ Anisocytosis 1+ Microcytosis 1+ Sodium Level 140 MMOL/L (136-145) Potassium Level 3.5 MMOL/L (3.5-5.1) Chloride Level 108 MMOL/L (98-107) H Carbon Dioxide Level 25 MMOL/L (21-32) Anion Gap 7 mmol/L (5-15) Blood Urea Nitrogen 8 mg/dL (7-18) Creatinine 1.0 MG/DL (0.55-1.30) Estimat Glomerular Filtration Rate > 60 mL/min (>60) Glucose Level 108 MG/DL (74-106) H Calcium Level 7.9 MG/DL (8.5-10.1) L Current Medications Medications (Trade) Dose Ordered Sig/Joey Route PRN Reason Start Time Stop Time Status Last Admin Dose Admin Acetaminophen (Tylenol) 650 mg Q4H PRN RECTAL FEVER 02/24/18 06:30 03/26/18 06:29 02/26/18 16:49 Chlorhexidine Gluconate (Monica-Hex 2%) 1 applic DAILY@2000 TOPIC 03/01/18 20:00 03/31/18 19:59 Dextrose/ Electrolytes 1,000 ml @ 100 mls/hr Q10H IV 02/28/18 16:00 03/30/18 15:59 03/01/18 13:13 Enoxaparin Sodium (Lovenox) 40 mg DAILY SUBQ 02/25/18 09:00 03/27/18 08:59 03/01/18 08:28 Heparin Sodium/ Sodium Chloride (Heparin 2000 units/Ns 1000ml premix) 2,000 unit ONCE PRN INJ PICC LINE PLACEMENT 03/01/18 09:30 03/02/18 23:59 Hydromorphone HCl (Dilaudid) 0.5 mg Q3H PRN IVP Pain Score 1-3 02/24/18 09:14 03/03/18 09:13 03/01/18 20:09 Hydromorphone HCl (Dilaudid) 1 mg Q3H PRN IVP pain score 4-6 02/24/18 09:14 03/03/18 09:13 03/01/18 08:22 Ipratropium [place] (Atrovent) 500 mcg Q6H PRN HHN Shortness of Breath 02/26/18 12:36 03/03/18 12:35 Lidocaine HCl (Xylocaine 1% 30ml) 30 ml ONCE PRN INJ PICC LINE PLACEMENT 03/01/18 09:30 03/02/18 23:59 Metoclopramide HCl (Reglan) 10 mg Q6H PRN IVP Nausea & Vomiting 02/24/18 06:30 03/26/18 06:29 Ondansetron HCl (Zofran) 4 mg Q6H PRN IVP Nausea & Vomiting 02/24/18 06:30 03/26/18 06:29 Pantoprazole (Protonix) 40 mg Q12HR IVP 02/24/18 21:00 03/26/18 20:59 03/01/18 20:09 Phenol/Menthol (Chloraseptic) 1 spray Q3H PRN ORAL Sore Throat 02/25/18 14:00 03/27/18 13:59 02/25/18 17:16 Piperacillin Sod/ Tazobactam Sod 3.375 gm/Dextrose 110 ml @ 27.5 mls/hr Q8H IVPB 03/02/18 02:00 03/09/18 01:59 Potassium Chloride (K-Dur) 20 meq ONCE ORAL 03/01/18 22:30 03/01/18 23:30 Potassium Chloride (K-Dur) 40 meq DAILY ORAL 02/27/18 12:12 03/29/18 12:11 02/27/18 13:06 Senna/Docusate Sodium (Alissa-Colace) 1 tab TWICE A DAY ORAL 03/01/18 18:00 03/31/18 17:59 03/01/18 18:17 Clementine Stanton M.D. Mar 01, 2018 22:39
[2018-03-02] VITALS: BP 96/60
[2018-03-02] MEDS: Piperacillin/Tazobactam 3.375 GM in D5W 110 ML IVPB SCH ×3 (02:00→18:17)
[2018-03-02 04:00] VITALS: BP 121/75
[2018-03-02 08:00] VITALS: BP 119/79
[2018-03-02] MEDS: Hydromorphone 0.5mg/0.5ml inj IVP PRN (08:03)
--- NOTE | 2018-03-02 10:16 | General Progress Note ---
Assessment/Plan Assessment/Plan S: I want to leave. O: NG tube out , is tolerating clear liquid , controlled pain in abdomen. PHYSICAL EXAMINATION: HEAD AND NECK: Atraumatic and normocephalic. CHEST: Clear to auscultation. No wheezing. No crackles. HEART: S1 and S2. Regular rate and rhythm. ABDOMEN: mid line Laparotomy, no local tenderness NEUROLOGIC: The patient is awake, alert, and oriented x3. MUSCULOSKELETAL: No gross focal motor deficit. Medication : Reviewed and reconciled, including Vanco IMAGING: CT scan of the abdomen dated February 24 reviewed shows free air in the abdomen. ASSESSMENT: 1. Sepsis, secondary to peritonitis ( chemical vs bacterial) 2. Peritonitis secondary to Perforation of gastric/duodenal ulcer. 3. Acute Anemia. 4. GI and DVT prophylaxis. 5. Fever 6. Refusal of treatment Plan: notes from surgeon is reviewed will supplement K Advance Diet per Dr Bond patient agreed to blood transfusion Subjective Allergies: Coded Allergies: No Known Allergies (Unverified , 02/23/18) Objective Last 24 Hour Vital Signs Date Time Temp Pulse Resp B/P (MAP) Pulse Ox O2 Delivery O2 Flow Rate FiO2 03/02/18 08:00 98.4 68 19 119/79 (92) 100 98.4 03/02/18 07:15 Room Air 21 03/02/18 07:15 100 Room Air 21 03/02/18 07:15 73 16 Room Air 21 03/02/18 04:00 98.5 73 18 121/75 (90) 100 98.5 03/02/18 00:00 98.7 74 16 96/60 (72) 100 98.7 03/01/18 21:00 Room Air 03/01/18 20:00 98.6 80 16 110/69 (83) 100 98.6 03/01/18 19:58 Room Air 21 03/01/18 19:57 98 Room Air 21 03/01/18 19:57 76 16 Room Air 21 03/01/18 16:00 98.8 81 18 108/67 (81) 99 98.8 03/01/18 12:00 97.0 71 18 104/73 (83) 100 97.0 Intake and Output 03/01/18 03/02/18 19:00 07:00 Intake Total 700 ml 300 ml Output Total 5 ml Balance 700 ml 295 ml Intake Oral 100 ml 300 ml IV Total 600 ml Drainage Total 5 ml # Voids 2 2 Height (Feet): 5 Height (Inches): 8.00 Weight (Pounds): 104 Clovis Nieto MD Mar 02, 2018 10:16
[2018-03-02] MEDS: Docusate Sod/Senna tab ORAL SCH ×2 (10:17→18:16)
[2018-03-02] MEDS: Pantoprazole Inj IVP SCH ×2 (10:17→21:18)
[2018-03-02 10:18] LABS: BASOPHILS % (AUTO) 0.8 % (0.0-2.0); HEMATOCRIT 32.6 % (37.0-47.0); HEMOGLOBIN 10.3 G/DL (12.0-16.0); LYMPHOCYTES % (AUTO) 14.1 % (20.0-45.0); MEAN CORPUSCULAR VOLUME 76 FL (80-99); MONOCYTES % (AUTO) 7.8 % (1.0-10.0); NEUTROPHILS % (AUTO) 70.3 % (45.0-75.0); PLATELET COUNT 273 K/UL (150-450); RED BLOOD COUNT 4.27 M/UL (4.20-5.40); RED CELL DISTRIBUTION WIDTH 16.5 % (11.6-14.8); WHITE BLOOD COUNT 7.4 K/UL (4.8-10.8)
[2018-03-02] MEDS: Enoxaparin 40mg Inj SUBQ SCH (10:22)
[2018-03-02 10:42] LABS: ALANINE AMINOTRANSFERASE 13 U/L (12-78); ALBUMIN 2.3 G/DL (3.4-5.0); ALBUMIN/GLOBULIN RATIO 0.6 (1.0-2.7); ALKALINE PHOSPHATASE 49 U/L (46-116); ANION GAP 7 mmol/L (5-15); ASPARTATE AMINO TRANSFERASE 15 U/L (15-37); BILIRUBIN,TOTAL 0.3 MG/DL (0.2-1.0); BLOOD UREA NITROGEN 7 mg/dL (7-18); CALCIUM 8.2 MG/DL (8.5-10.1); CARBON DIOXIDE 26 MMOL/L (21-32); CHLORIDE 103 MMOL/L (98-107); CREATININE 0.8 MG/DL (0.55-1.30); POTASSIUM 4.3 MMOL/L (3.5-5.1); SODIUM 136 MMOL/L (136-145)
[2018-03-02 12:00] VITALS: BP 118/76
[2018-03-02] MEDS: Norco 5mg/325mg tab ORAL PRN ×2 (14:18→22:42)
--- NOTE | 2018-03-02 14:34 | General Surgery Progress Note ---
General Surgery-Progress Note Subjective Procedure Performed Ex Lap & repair of perforated duodenal ulcer Symptoms: improved, passing flatus Objective Last 24 Hour Vital Signs Date Time Temp Pulse Resp B/P (MAP) Pulse Ox O2 Delivery O2 Flow Rate FiO2 03/02/18 14:18 98.2 03/02/18 12:00 98.2 71 20 118/76 (90) 99 98.2 03/02/18 09:00 Room Air 03/02/18 08:00 98.4 68 19 119/79 (92) 100 98.4 03/02/18 07:15 Room Air 21 03/02/18 07:15 100 Room Air 21 03/02/18 07:15 73 16 Room Air 21 03/02/18 04:00 98.5 73 18 121/75 (90) 100 98.5 03/02/18 00:00 98.7 74 16 96/60 (72) 100 98.7 03/01/18 21:00 Room Air 03/01/18 20:00 98.6 80 16 110/69 (83) 100 98.6 03/01/18 19:58 Room Air 21 03/01/18 19:57 98 Room Air 21 03/01/18 19:57 76 16 Room Air 21 03/01/18 16:00 98.8 81 18 108/67 (81) 99 98.8 I&O Intake and Output 03/01/18 03/02/18 19:00 07:00 Intake Total 700 ml 300 ml Output Total 5 ml Balance 700 ml 295 ml Intake Oral 100 ml 300 ml IV Total 600 ml Drainage Total 5 ml # Voids 2 2 Wound: clean, intact Drains: renee Respiratory: clear Abdomen: soft, flat, non-tender, present bowel sounds Extremities: no tenderness Laboratory Tests Test 03/02/18 08:50 White Blood Count 7.4 K/UL (4.8-10.8) Red Blood Count 4.27 M/UL (4.20-5.40) Hemoglobin 10.3 G/DL (12.0-16.0) #L Hematocrit 32.6 % (37.0-47.0) #L Mean Corpuscular Volume 76 FL (80-99) L Mean Corpuscular Hemoglobin 24.0 PG (27.0-31.0) L Mean Corpuscular Hemoglobin Concent 31.5 G/DL (32.0-36.0) L Red Cell Distribution Width 16.5 % (11.6-14.8) H Platelet Count 273 K/UL (150-450) Mean Platelet Volume 5.3 FL (6.5-10.1) L Neutrophils (%) (Auto) 70.3 % (45.0-75.0) Lymphocytes (%) (Auto) 14.1 % (20.0-45.0) L Monocytes (%) (Auto) 7.8 % (1.0-10.0) Eosinophils (%) (Auto) 7.0 % (0.0-3.0) H Basophils (%) (Auto) 0.8 % (0.0-2.0) Sodium Level 136 MMOL/L (136-145) Potassium Level 4.3 MMOL/L (3.5-5.1) Chloride Level 103 MMOL/L (98-107) Carbon Dioxide Level 26 MMOL/L (21-32) Anion Gap 7 mmol/L (5-15) Blood Urea Nitrogen 7 mg/dL (7-18) Creatinine 0.8 MG/DL (0.55-1.30) Estimat Glomerular Filtration Rate > 60 mL/min (>60) Glucose Level 129 MG/DL (74-106) H Calcium Level 8.2 MG/DL (8.5-10.1) L Total Bilirubin 0.3 MG/DL (0.2-1.0) Aspartate Amino Transf (AST/SGOT) 15 U/L (15-37) Alanine Aminotransferase (ALT/SGPT) 13 U/L (12-78) Alkaline Phosphatase 49 U/L (46-116) Total Protein 5.9 G/DL (6.4-8.2) L Albumin 2.3 G/DL (3.4-5.0) L Globulin 3.6 g/dL Albumin/Globulin Ratio 0.6 (1.0-2.7) L Assessment Post-op Diagnosis perforated duodenal ulcer Plan Additional Comments continue as before Juan R Bond MD Mar 02, 2018 14:34
[2018-03-02] MEDS: D5 1/2NS w/KCl 40meq 1000ml 1,000 ML IV SCH ×2 (15:09→18:00)
--- NOTE | 2018-03-02 15:50 | Infectious Diseases Prog Note ---
Assessment/Plan Problems: (1) Perforated duodenal ulcer Assessment & Plan: with peritonitis and sepsis , S/P EXP LAP with repair of the duodenal ulcer , continue zosyn empirically for 7-10 days (2) Peritonitis (acute) generalized Assessment & Plan: due to perforated duodenal ulcer, most likely polymicrobial , will continue zosyn empirically for 7-10 days , general surgery is following (3) Sepsis Assessment & Plan: due to the above , no evidence of pneumonia , continue zosyn empirically for intra abdominal infection and peritonitis (4) Amphetamine abuse Assessment & Plan: recommend counsling and rehabilitation, will screen for hepatitis (5) UTI (urinary tract infection) Assessment & Plan: due to strep viridans already on zosyn Subjective Constitutional: Reports: no symptoms HEENT: Reports: no symptoms Respiratory: Reports: no symptoms Breasts: Reports: no symptoms Cardiovascular: Reports: no symptoms Gastrointestinal/Abdominal: Reports: no symptoms Genitourinary: Reports: no symptoms Neurologic: Reports: no symptoms Psychiatric: Reports: no symptoms Skin: Reports: no symptoms Endocrine: Reports: no symptoms Hematologic: Reports: no symptoms Musculoskeletal: Reports: no symptoms Allergies: Coded Allergies: No Known Allergies (Unverified , 02/23/18) Objective Vital Signs Last 24 Hour Vital Signs Date Time Temp Pulse Resp B/P (MAP) Pulse Ox O2 Delivery O2 Flow Rate FiO2 03/02/18 14:48 98.2 03/02/18 14:18 98.2 03/02/18 12:00 98.2 71 20 118/76 (90) 99 98.2 03/02/18 09:00 Room Air 03/02/18 08:00 98.4 68 19 119/79 (92) 100 98.4 03/02/18 07:15 Room Air 21 03/02/18 07:15 100 Room Air 21 03/02/18 07:15 73 16 Room Air 21 03/02/18 04:00 98.5 73 18 121/75 (90) 100 98.5 03/02/18 00:00 98.7 74 16 96/60 (72) 100 98.7 03/01/18 21:00 Room Air 03/01/18 20:00 98.6 80 16 110/69 (83) 100 98.6 03/01/18 19:58 Room Air 21 03/01/18 19:57 98 Room Air 21 03/01/18 19:57 76 16 Room Air 21 03/01/18 16:00 98.8 81 18 108/67 (81) 99 98.8 Height (Feet): 5 Height (Inches): 8.00 Weight (Pounds): 104 General Appearance: WD/WN, no acute distress HEENT: normocephalic, atraumatic, anicteric, mucous membranes moist, PERRL Respiratory/Chest: chest wall non-tender, lungs clear, normal breath sounds, no respiratory distress, no accessory muscle use Cardiovascular: normal peripheral pulses, normal rate, regular rhythm, no gallop/murmur, no JVD Abdomen: normal bowel sounds, no organomegaly, non distended, no mass, no scars , tender Extremities: no cyanosis, no clubbing Skin: no rash, no lesions, no ulcers Neurologic/Psychiatric: alert, oriented x 3, responsive Lymphatic: no neck adenopathy, no groin adenopathy Laboratory Tests Test 03/02/18 08:50 White Blood Count 7.4 K/UL (4.8-10.8) Red Blood Count 4.27 M/UL (4.20-5.40) Hemoglobin 10.3 G/DL (12.0-16.0) #L Hematocrit 32.6 % (37.0-47.0) #L Mean Corpuscular Volume 76 FL (80-99) L Mean Corpuscular Hemoglobin 24.0 PG (27.0-31.0) L Mean Corpuscular Hemoglobin Concent 31.5 G/DL (32.0-36.0) L Red Cell Distribution Width 16.5 % (11.6-14.8) H Platelet Count 273 K/UL (150-450) Mean Platelet Volume 5.3 FL (6.5-10.1) L Neutrophils (%) (Auto) 70.3 % (45.0-75.0) Lymphocytes (%) (Auto) 14.1 % (20.0-45.0) L Monocytes (%) (Auto) 7.8 % (1.0-10.0) Eosinophils (%) (Auto) 7.0 % (0.0-3.0) H Basophils (%) (Auto) 0.8 % (0.0-2.0) Sodium Level 136 MMOL/L (136-145) Potassium Level 4.3 MMOL/L (3.5-5.1) Chloride Level 103 MMOL/L (98-107) Carbon Dioxide Level 26 MMOL/L (21-32) Anion Gap 7 mmol/L (5-15) Blood Urea Nitrogen 7 mg/dL (7-18) Creatinine 0.8 MG/DL (0.55-1.30) Estimat Glomerular Filtration Rate > 60 mL/min (>60) Glucose Level 129 MG/DL (74-106) H Calcium Level 8.2 MG/DL (8.5-10.1) L Total Bilirubin 0.3 MG/DL (0.2-1.0) Aspartate Amino Transf (AST/SGOT) 15 U/L (15-37) Alanine Aminotransferase (ALT/SGPT) 13 U/L (12-78) Alkaline Phosphatase 49 U/L (46-116) Total Protein 5.9 G/DL (6.4-8.2) L Albumin 2.3 G/DL (3.4-5.0) L Globulin 3.6 g/dL Albumin/Globulin Ratio 0.6 (1.0-2.7) L Current Medications Medications (Trade) Dose Ordered Sig/Joey Route PRN Reason Start Time Stop Time Status Last Admin Dose Admin Acetaminophen (Tylenol) 650 mg Q4H PRN RECTAL FEVER 02/24/18 06:30 03/26/18 06:29 02/26/18 16:49 Acetaminophen/ Hydrocodone Bitart ([place] 5/325) 1 tab Q4H PRN ORAL Moderate Pain (Pain Scale 4-6) 03/02/18 12:48 03/09/18 12:47 03/02/18 14:18 Bisacodyl (Dulcolax) 10 mg ONCE RECTAL 03/02/18 15:00 03/02/18 17:00 Chlorhexidine Gluconate (Monica-Hex 2%) 1 applic DAILY@2000 TOPIC 03/01/18 20:00 03/31/18 19:59 Dextrose/ Electrolytes 1,000 ml @ 100 mls/hr Q10H IV 02/28/18 16:00 03/30/18 15:59 03/02/18 15:09 Enoxaparin Sodium (Lovenox) 40 mg DAILY SUBQ 02/25/18 09:00 03/27/18 08:59 03/02/18 10:22 Heparin Sodium/ Sodium Chloride (Heparin 2000 units/Ns 1000ml premix) 2,000 unit ONCE PRN INJ PICC LINE PLACEMENT 03/01/18 09:30 03/02/18 23:59 Ipratropium Baxter (Atrovent) 500 mcg Q6H PRN HHN Shortness of Breath 02/26/18 12:36 03/03/18 12:35 Lidocaine HCl (Xylocaine 1% 30ml) 30 ml ONCE PRN INJ PICC LINE PLACEMENT 03/01/18 09:30 03/02/18 23:59 Metoclopramide HCl (Reglan) 10 mg Q6H PRN IVP Nausea & Vomiting 02/24/18 06:30 03/26/18 06:29 Ondansetron HCl (Zofran) 4 mg Q6H PRN IVP Nausea & Vomiting 02/24/18 06:30 03/26/18 06:29 Pantoprazole (Protonix) 40 mg Q12HR IVP 02/24/18 21:00 03/26/18 20:59 03/02/18 10:17 Phenol/Menthol (Chloraseptic) 1 spray Q3H PRN ORAL Sore Throat 02/25/18 14:00 03/27/18 13:59 02/25/18 17:16 Piperacillin Sod/ Tazobactam Sod 3.375 gm/Dextrose 110 ml @ 27.5 mls/hr Q8H IVPB 03/02/18 02:00 03/09/18 01:59 03/02/18 10:23 Potassium Chloride (K-Dur) 40 meq DAILY ORAL 02/27/18 12:12 03/29/18 12:11 03/02/18 10:17 Senna/Docusate Sodium (Alissa-Colace) 1 tab TWICE A DAY ORAL 03/01/18 18:00 03/31/18 17:59 03/02/18 10:17 Clementine Stanton M.D. Mar 02, 2018 15:50
[2018-03-02 16:00] VITALS: BP 105/72
[2018-03-02 20:00] VITALS: BP 121/73
[2018-03-02] MEDS: Dyna-Hex 2% Top Sol 2oz TOPIC SCH (21:18)
[2018-03-03] VITALS: BP 109/65
[2018-03-03] MEDS: Piperacillin/Tazobactam 3.375 GM in D5W 110 ML IVPB SCH ×2 (01:53→10:04)
[2018-03-03] MEDS: D5 1/2NS w/KCl 40meq 1000ml 1,000 ML IV SCH (03:33)
[2018-03-03 04:00] VITALS: BP 108/81
[2018-03-03 07:15] LABS: ALANINE AMINOTRANSFERASE 18 U/L (12-78); ALBUMIN 2.2 G/DL (3.4-5.0); ALBUMIN/GLOBULIN RATIO 0.6 (1.0-2.7); ALKALINE PHOSPHATASE 50 U/L (46-116); ASPARTATE AMINO TRANSFERASE 14 U/L (15-37); BILIRUBIN,TOTAL 0.2 MG/DL (0.2-1.0); BLOOD UREA NITROGEN 7 mg/dL (7-18); CALCIUM 8.4 MG/DL (8.5-10.1); CHLORIDE 105 MMOL/L (98-107); POTASSIUM 4.1 MMOL/L (3.5-5.1); SODIUM 139 MMOL/L (136-145)
[2018-03-03 07:59] LABS: CARBON DIOXIDE 25 MMOL/L (21-32)
[2018-03-03 08:00] VITALS: BP 111/78
[2018-03-03] MEDS: Enoxaparin 40mg Inj SUBQ SCH (09:00)
[2018-03-03] MEDS: Docusate Sod/Senna tab ORAL SCH ×2 (10:04→18:58)
[2018-03-03] MEDS: Pantoprazole Inj IVP SCH (10:04)
--- NOTE | 2018-03-03 11:10 | General Progress Note ---
Assessment/Plan Assessment/Plan S: I feel better O: NG tube out , is tolerating clear liquid , controlled pain in abdomen. PHYSICAL EXAMINATION: HEAD AND NECK: Atraumatic and normocephalic. CHEST: Clear to auscultation. No wheezing. No crackles. HEART: S1 and S2. Regular rate and rhythm. ABDOMEN: mid line Laparotomy, no local tenderness NEUROLOGIC: The patient is awake, alert, and oriented x3. MUSCULOSKELETAL: No gross focal motor deficit. Medication : Reviewed and reconciled, including Vanco IMAGING: CT scan of the abdomen dated February 24 reviewed shows free air in the abdomen. ASSESSMENT: 1. Sepsis, secondary to peritonitis ( chemical vs bacterial) 2. Peritonitis secondary to Perforation of gastric/duodenal ulcer. 3. Acute Anemia. 4. GI and DVT prophylaxis. 5. Fever 6. Refusal of treatment Plan: notes from surgeon is reviewed Advance Diet per Dr Bond S/p blood transfusion Medically stable Subjective Allergies: Coded Allergies: No Known Allergies (Unverified , 02/23/18) Objective Last 24 Hour Vital Signs Date Time Temp Pulse Resp B/P (MAP) Pulse Ox O2 Delivery O2 Flow Rate FiO2 03/03/18 08:00 98.4 67 20 111/78 (89) 100 98.4 03/03/18 07:11 Room Air 03/03/18 04:00 97.8 66 18 108/81 (90) 100 97.8 03/03/18 00:00 97.6 67 18 109/65 (80) 98 97.6 03/02/18 21:37 100 Room Air 21 03/02/18 21:00 Room Air 03/02/18 20:14 71 16 Room Air 21 03/02/18 20:14 Room Air 21 03/02/18 20:00 98.9 71 18 121/73 (89) 100 98.9 03/02/18 16:00 97.8 73 20 105/72 (83) 100 97.8 03/02/18 14:48 98.2 03/02/18 14:18 98.2 03/02/18 12:00 98.2 71 20 118/76 (90) 99 98.2 Intake and Output 03/02/18 03/03/18 19:00 07:00 Intake Total 1370.0 ml 1500.0 ml Output Total 5 ml 5 ml Balance 1365.0 ml 1495.0 ml Intake Oral 660 ml 480 ml IV Total 710.0 ml 1020.0 ml Drainage Total 5 ml 5 ml # Voids 2 Laboratory Tests 03/03/18 05:10: Sodium Level 139, Potassium Level 4.1, Chloride Level 105, Carbon Dioxide Level 25, Blood Urea Nitrogen 7, Creatinine 1.0, Estimat Glomerular Filtration Rate > 60, Glucose Level 87, Calcium Level 8.4L, Total Bilirubin 0.2, Aspartate Amino Transf (AST/SGOT) 14L, Alanine Aminotransferase (ALT/SGPT) 18, Alkaline Phosphatase 50, Total Protein 5.6L, Albumin 2.2L, Globulin 3.4, Albumin/ Globulin Ratio 0.6L Height (Feet): 5 Height (Inches): 8.00 Weight (Pounds): 104 Clovis Nieto MD Mar 03, 2018 11:10
[2018-03-03 12:00] VITALS: BP 113/76
--- NOTE | 2018-03-03 15:55 | General Surgery Progress Note ---
General Surgery-Progress Note Subjective Procedure Performed Ex Lap & repair of perforated duodenal ulcer Symptoms: improved, BM Objective Last 24 Hour Vital Signs Date Time Temp Pulse Resp B/P (MAP) Pulse Ox O2 Delivery O2 Flow Rate FiO2 03/03/18 13:05 99 Room Air 21 03/03/18 13:05 Room Air 21 03/03/18 13:05 76 18 Room Air 21 03/03/18 12:00 97.8 75 20 113/76 (88) 100 97.8 03/03/18 08:00 98.4 67 20 111/78 (89) 100 98.4 03/03/18 07:11 Room Air 03/03/18 04:00 97.8 66 18 108/81 (90) 100 97.8 03/03/18 00:00 97.6 67 18 109/65 (80) 98 97.6 03/02/18 21:37 100 Room Air 21 03/02/18 21:00 Room Air 03/02/18 20:14 71 16 Room Air 21 03/02/18 20:14 Room Air 21 03/02/18 20:00 98.9 71 18 121/73 (89) 100 98.9 03/02/18 16:00 97.8 73 20 105/72 (83) 100 97.8 I&O Intake and Output 03/02/18 03/03/18 19:00 07:00 Intake Total 1370.0 ml 1500.0 ml Output Total 5 ml 5 ml Balance 1365.0 ml 1495.0 ml Intake Oral 660 ml 480 ml IV Total 710.0 ml 1020.0 ml Drainage Total 5 ml 5 ml # Voids 2 Wound: clean, intact Drains: renee Respiratory: clear Abdomen: soft, flat, non-tender, present bowel sounds Extremities: no tenderness Laboratory Tests Test 03/03/18 05:10 Sodium Level 139 MMOL/L (136-145) Potassium Level 4.1 MMOL/L (3.5-5.1) Chloride Level 105 MMOL/L (98-107) Carbon Dioxide Level 25 MMOL/L (21-32) Blood Urea Nitrogen 7 mg/dL (7-18) Creatinine 1.0 MG/DL (0.55-1.30) Estimat Glomerular Filtration Rate > 60 mL/min (>60) Glucose Level 87 MG/DL (74-106) Calcium Level 8.4 MG/DL (8.5-10.1) L Total Bilirubin 0.2 MG/DL (0.2-1.0) Aspartate Amino Transf (AST/SGOT) 14 U/L (15-37) L Alanine Aminotransferase (ALT/SGPT) 18 U/L (12-78) Alkaline Phosphatase 50 U/L (46-116) Total Protein 5.6 G/DL (6.4-8.2) L Albumin 2.2 G/DL (3.4-5.0) L Globulin 3.4 g/dL Albumin/Globulin Ratio 0.6 (1.0-2.7) L Assessment Post-op Diagnosis perforated duodenal ulcer Plan Additional Comments diet, can be discharged tomorrow Juan R Bond MD Mar 03, 2018 15:55
[2018-03-03 16:00] VITALS: BP 109/68
--- NOTE | 2018-03-03 17:30 | Infectious Diseases Prog Note ---
Assessment/Plan Problems: (1) Perforated duodenal ulcer Assessment & Plan: with peritonitis and sepsis , S/P EXP LAP with repair of the duodenal ulcer , received zosyn empirically for 7 days (2) Peritonitis (acute) generalized Assessment & Plan: due to perforated duodenal ulcer, most likely polymicrobial , S/P zosyn empirically for 7 days, discontinued by general surgery (3) Sepsis Assessment & Plan: due to the above , S/P zosyn empirically for intra abdominal infection and peritonitis for 7 days (4) Amphetamine abuse Assessment & Plan: recommend counsling and rehabilitation, will screen for hepatitis (5) UTI (urinary tract infection) Assessment & Plan: due to strep viridans , treated with zosyn Subjective Constitutional: Reports: no symptoms HEENT: Reports: no symptoms Respiratory: Reports: no symptoms Breasts: Reports: no symptoms Cardiovascular: Reports: no symptoms Gastrointestinal/Abdominal: Reports: no symptoms Genitourinary: Reports: no symptoms Neurologic: Reports: no symptoms Psychiatric: Reports: no symptoms Skin: Reports: no symptoms Endocrine: Reports: no symptoms Hematologic: Reports: no symptoms Musculoskeletal: Reports: no symptoms Allergies: Coded Allergies: No Known Allergies (Unverified , 02/23/18) Objective Vital Signs Last 24 Hour Vital Signs Date Time Temp Pulse Resp B/P (MAP) Pulse Ox O2 Delivery O2 Flow Rate FiO2 03/03/18 16:00 98.1 78 20 109/68 (82) 100 98.1 03/03/18 13:05 99 Room Air 21 03/03/18 13:05 Room Air 21 03/03/18 13:05 76 18 Room Air 21 03/03/18 12:00 97.8 75 20 113/76 (88) 100 97.8 03/03/18 08:00 98.4 67 20 111/78 (89) 100 98.4 03/03/18 07:11 Room Air 03/03/18 04:00 97.8 66 18 108/81 (90) 100 97.8 03/03/18 00:00 97.6 67 18 109/65 (80) 98 97.6 03/02/18 21:37 100 Room Air 21 03/02/18 21:00 Room Air 03/02/18 20:14 71 16 Room Air 21 03/02/18 20:14 Room Air 21 03/02/18 20:00 98.9 71 18 121/73 (89) 100 98.9 Height (Feet): 5 Height (Inches): 8.00 Weight (Pounds): 104 General Appearance: WD/WN, no acute distress HEENT: normocephalic, atraumatic, anicteric, mucous membranes moist, PERRL Respiratory/Chest: chest wall non-tender, lungs clear, normal breath sounds, no respiratory distress, no accessory muscle use Cardiovascular: normal peripheral pulses, normal rate, regular rhythm, no gallop/murmur, no JVD Abdomen: soft, non tender, no organomegaly, non distended, no mass, no scars, hypoactive bowel sounds, other - CELIA drainage in place Extremities: no cyanosis, no clubbing Skin: no rash, no lesions, no ulcers Neurologic/Psychiatric: alert, oriented x 3, responsive Lymphatic: no neck adenopathy, no groin adenopathy Musculoskeletal: normal muscle bulk, no effusion Laboratory Tests Test 03/03/18 05:10 Sodium Level 139 MMOL/L (136-145) Potassium Level 4.1 MMOL/L (3.5-5.1) Chloride Level 105 MMOL/L (98-107) Carbon Dioxide Level 25 MMOL/L (21-32) Blood Urea Nitrogen 7 mg/dL (7-18) Creatinine 1.0 MG/DL (0.55-1.30) Estimat Glomerular Filtration Rate > 60 mL/min (>60) Glucose Level 87 MG/DL (74-106) Calcium Level 8.4 MG/DL (8.5-10.1) L Total Bilirubin 0.2 MG/DL (0.2-1.0) Aspartate Amino Transf (AST/SGOT) 14 U/L (15-37) L Alanine Aminotransferase (ALT/SGPT) 18 U/L (12-78) Alkaline Phosphatase 50 U/L (46-116) Total Protein 5.6 G/DL (6.4-8.2) L Albumin 2.2 G/DL (3.4-5.0) L Globulin 3.4 g/dL Albumin/Globulin Ratio 0.6 (1.0-2.7) L Current Medications Medications (Trade) Dose Ordered Sig/Joey Route PRN Reason Start Time Stop Time Status Last Admin Dose Admin Acetaminophen (Tylenol) 650 mg Q4H PRN RECTAL FEVER 02/24/18 06:30 03/26/18 06:29 02/26/18 16:49 Acetaminophen/ Hydrocodone Bitart ([place] 5/325) 1 tab Q4H PRN ORAL Moderate Pain (Pain Scale 4-6) 03/02/18 12:48 03/09/18 12:47 03/02/18 22:42 Chlorhexidine Gluconate (Monica-Hex 2%) 1 applic DAILY@2000 TOPIC 03/01/18 20:00 03/31/18 19:59 03/02/18 21:18 Enoxaparin Sodium (Lovenox) 40 mg DAILY SUBQ 02/25/18 09:00 03/27/18 08:59 03/02/18 10:22 Metoclopramide HCl (Reglan) 10 mg Q6H PRN IVP Nausea & Vomiting 02/24/18 06:30 03/26/18 06:29 Ondansetron HCl (Zofran) 4 mg Q6H PRN IVP Nausea & Vomiting 02/24/18 06:30 03/26/18 06:29 Pantoprazole (Protonix) 40 mg EVERY 12 HOURS ORAL 03/03/18 21:00 04/02/18 20:59 Phenol/Menthol (Chloraseptic) 1 spray Q3H PRN ORAL Sore Throat 02/25/18 14:00 03/27/18 13:59 02/25/18 17:16 Senna/Docusate Sodium (Alissa-Colace) 1 tab TWICE A DAY ORAL 03/01/18 18:00 03/31/18 17:59 03/03/18 10:04 Sodium Chloride 1,000 ml @ 0 mls/hr Q0M IV 03/03/18 16:00 04/02/18 15:59 Clementine Stanton M.D. Mar 03, 2018 17:30
[2018-03-03 20:00] VITALS: BP 118/77
[2018-03-03] MEDS: Dyna-Hex 2% Top Sol 2oz TOPIC SCH (20:34)
[2018-03-04 00:18] VITALS: BP 123/74
[2018-03-04] MEDS: Norco 5mg/325mg tab ORAL PRN (00:33)
[2018-03-04 04:27] VITALS: BP 108/76
[2018-03-04 06:29] LABS: ALANINE AMINOTRANSFERASE 21 U/L (12-78); ALBUMIN 2.4 G/DL (3.4-5.0); ALBUMIN/GLOBULIN RATIO 0.7 (1.0-2.7); ALKALINE PHOSPHATASE 53 U/L (46-116); ANION GAP 8 mmol/L (5-15); ASPARTATE AMINO TRANSFERASE 16 U/L (15-37); BILIRUBIN,TOTAL 0.1 MG/DL (0.2-1.0); BLOOD UREA NITROGEN 9 mg/dL (7-18); CALCIUM 8.5 MG/DL (8.5-10.1); CARBON DIOXIDE 26 MMOL/L (21-32); CHLORIDE 104 MMOL/L (98-107); CREATININE 0.9 MG/DL (0.55-1.30); POTASSIUM 3.9 MMOL/L (3.5-5.1); SODIUM 138 MMOL/L (136-145)
[2018-03-04 08:00] VITALS: BP 107/66
[2018-03-04] MEDS: Enoxaparin 40mg Inj SUBQ SCH ×4 (09:00→10:03)
[2018-03-04] MEDS: Docusate Sod/Senna tab ORAL SCH (09:44)
--- NOTE | 2018-03-04 11:17 | General Surgery Progress Note ---
General Surgery-Progress Note Subjective Procedure Performed Ex Lap & repair of perforated duodenal ulcer Symptoms: improved, BM Objective Last 24 Hour Vital Signs Date Time Temp Pulse Resp B/P (MAP) Pulse Ox O2 Delivery O2 Flow Rate FiO2 03/04/18 09:00 Room Air 03/04/18 08:00 98.6 75 18 107/66 (80) 100 98.6 03/04/18 04:27 97.9 75 18 108/76 (87) 100 97.9 03/04/18 01:03 98.3 03/04/18 00:33 98.3 03/04/18 00:18 98.3 65 18 123/74 (90) 99 98.3 03/03/18 21:32 Room Air 03/03/18 20:10 98 Room Air 21 03/03/18 20:10 Room Air 21 03/03/18 20:10 74 18 Room Air 21 03/03/18 20:00 98.1 67 18 118/77 (91) 100 98.1 03/03/18 16:00 98.1 78 20 109/68 (82) 100 98.1 03/03/18 13:05 99 Room Air 21 03/03/18 13:05 Room Air 21 03/03/18 13:05 76 18 Room Air 21 03/03/18 12:00 97.8 75 20 113/76 (88) 100 97.8 I&O Intake and Output 03/03/18 03/04/18 19:00 07:00 Intake Total 920.0 ml 1110 ml Balance 920.0 ml 1110 ml Intake Oral 710 ml 960 ml IV Total 210.0 ml 150 ml # Voids 2 5 Wound: clean, intact Drains: none Respiratory: clear Abdomen: soft, flat, non-tender, present bowel sounds Extremities: no tenderness Laboratory Tests Test 03/04/18 05:25 Sodium Level 138 MMOL/L (136-145) Potassium Level 3.9 MMOL/L (3.5-5.1) Chloride Level 104 MMOL/L (98-107) Carbon Dioxide Level 26 MMOL/L (21-32) Anion Gap 8 mmol/L (5-15) Blood Urea Nitrogen 9 mg/dL (7-18) Creatinine 0.9 MG/DL (0.55-1.30) Estimat Glomerular Filtration Rate > 60 mL/min (>60) Glucose Level 93 MG/DL (74-106) Calcium Level 8.5 MG/DL (8.5-10.1) Total Bilirubin 0.1 MG/DL (0.2-1.0) L Aspartate Amino Transf (AST/SGOT) 16 U/L (15-37) Alanine Aminotransferase (ALT/SGPT) 21 U/L (12-78) Alkaline Phosphatase 53 U/L (46-116) Total Protein 5.9 G/DL (6.4-8.2) L Albumin 2.4 G/DL (3.4-5.0) L Globulin 3.5 g/dL Albumin/Globulin Ratio 0.7 (1.0-2.7) L Assessment Post-op Diagnosis perforated duodenal ulcer Plan Additional Comments discharge to home Juan R Bond MD Mar 04, 2018 11:16
--- NOTE | 2018-03-04 11:18 | Discharge Instructions ---
Discharge Instructions Discharge Instructions Follow up with: my office in one week Diet: regular Resume Normal Activity?: Yes Activity: as tolerated For Surgical Patients May shower: Yes For Congestive Heart Failure Reminder Report to your physician any weight gain of 5 pounds or more in one week. Juan R Bond MD Mar 04, 2018 11:18
[2018-03-04] MEDS ORDERED: 1/2 NS 1000ml IV ONE (12:44)
--- NOTE | 2018-03-04 13:24 | General Progress Note ---
Assessment/Plan Assessment/Plan S: I feel better O: NG tube out , is tolerating solid food , controlled pain in abdomen. PHYSICAL EXAMINATION: HEAD AND NECK: Atraumatic and normocephalic. CHEST: Clear to auscultation. No wheezing. No crackles. HEART: S1 and S2. Regular rate and rhythm. ABDOMEN: mid line Laparotomy, no local tenderness NEUROLOGIC: The patient is awake, alert, and oriented x3. MUSCULOSKELETAL: No gross focal motor deficit. Medication : Reviewed and reconciled, including Vanco IMAGING: CT scan of the abdomen dated February 24 reviewed shows free air in the abdomen. ASSESSMENT: 1. Sepsis, secondary to peritonitis ( chemical vs bacterial) 2. Peritonitis secondary to Perforation of gastric/duodenal ulcer. 3. Acute Anemia. 4. GI and DVT prophylaxis. 5. Fever 6. Refusal of treatment Plan: notes from surgeon is reviewed Advance Diet per Dr Bond S/p blood transfusion Medically stable out patient medication ,per ID rec. Subjective Allergies: Coded Allergies: No Known Allergies (Unverified , 02/23/18) Objective Last 24 Hour Vital Signs Date Time Temp Pulse Resp B/P (MAP) Pulse Ox O2 Delivery O2 Flow Rate FiO2 03/04/18 09:00 Room Air 03/04/18 08:00 98.6 75 18 107/66 (80) 100 98.6 03/04/18 04:27 97.9 75 18 108/76 (87) 100 97.9 03/04/18 01:03 98.3 03/04/18 00:33 98.3 03/04/18 00:18 98.3 65 18 123/74 (90) 99 98.3 03/03/18 21:32 Room Air 03/03/18 20:10 98 Room Air 21 03/03/18 20:10 Room Air 21 03/03/18 20:10 74 18 Room Air 21 03/03/18 20:00 98.1 67 18 118/77 (91) 100 98.1 03/03/18 16:00 98.1 78 20 109/68 (82) 100 98.1 Intake and Output 03/03/18 03/04/18 19:00 07:00 Intake Total 920.0 ml 1110 ml Balance 920.0 ml 1110 ml Intake Oral 710 ml 960 ml IV Total 210.0 ml 150 ml # Voids 2 5 Laboratory Tests 03/04/18 05:25: Sodium Level 138, Potassium Level 3.9, Chloride Level 104, Carbon Dioxide Level 26, Anion Gap 8, Blood Urea Nitrogen 9, Creatinine 0.9, Estimat Glomerular Filtration Rate > 60, Glucose Level 93, Calcium Level 8.5, Total Bilirubin 0.1L , Aspartate Amino Transf (AST/SGOT) 16, Alanine Aminotransferase (ALT/SGPT) 21, Alkaline Phosphatase 53, Total Protein 5.9L, Albumin 2.4L, Globulin 3.5, Albumin /Globulin Ratio 0.7L Height (Feet): 5 Height (Inches): 8.00 Weight (Pounds): 105 Clovis Nieto MD Mar 04, 2018 13:24
--- NOTE | 2018-03-05 02:15 | Discharge Summary ---
DATE OF ADMISSION: 02/24/2018 DATE OF DISCHARGE: 03/04/2018 ADMITTING DIAGNOSIS: Perforated duodenal ulcer. DISCHARGE DIAGNOSIS: Perforated duodenal ulcer. OPERATION: Exploratory laparotomy and gastrorrhaphy. COMPLICATIONS: None. INDICATION: This is a 37-year-old [place] female, who presented with abdominal pain since 9 o'clock on the day of the admission. Physical examination showed board-like rigidity of the abdomen with tenderness allover the abdomen which was more pronounced at upper abdomen. CBC showed WBC of 12,000 with left shift. CAT scan of the abdomen was interpreted as perforated hollow viscus. HOSPITAL COURSE: The patient was admitted to the hospital and immediately underwent exploratory laparotomy during which perforated duodenal ulcer was encountered. Gastrorrhaphy and Ba pouch was performed. Postop course was uneventful except on the second postoperative day, the patient had low-grade fever which responded to the pulmonary toilet. The NG tube was removed about 4 days ago and 3 days ago, she was started on clear-liquid diet which was gradually advanced to regular diet. At the time of this dictation, the patient is afebrile and tolerating regular diet without any apparent complication. The drain had already been removed and the marcello had been removed. Her chest is clear and the abdomen is soft, flat, nontender, so she will be discharged to home to be followed in my office in 10 days. DISCHARGE MEDICATION: Protonix. CONDITION: The patient at the time of discharge was improved. DISCHARGE INSTRUCTIONS: The patient had been instructed about her diet, activity, showering, and medication. Juan R Bond M.D. DR: Oseas JOB#: [id number] CC:
== END 2018-03-04 12:45 | disposition home or self-care (01) | DRG 710 ==
LOC: EDBD 23:39 → EMR 23:54 → EDBEDREQ 02-24 03:03 → SUR 02-24 05:04 → 3E 02-24 09:04
PROC: 0DU907Z Supplement Duodenum with Autologous Tissue Substitute, Open Approach (ICD-10-PCS; principal; 2018-02-24 05:00)
DX: A41.9 Sepsis, unspecified organism (principal); K26.1 Acute duodenal ulcer with perforation; K65.0 Generalized (acute) peritonitis; D64.9 Anemia, unspecified; Z72.0 Tobacco use; F15.10 Other stimulant abuse, uncomplicated; N39.0 Urinary tract infection, site not specified; R06.02 Shortness of breath
CPT/HCPCS: 36415; 71045; 74177; 80048; 80053; 80202; 80307; 81003; 81025; 83690; 85007; 85025; 85610; 85730; 86803; 86850; 86900; 86901; 86920; 87040; 87086; 87340; 87517; 93970; 94003; 94150; 94664; 94760; 96361; 96365; 96375; 96376; 99291; C9399; J2250; J2405; J2710; J8499